=== PATIENT | male | born 1950 | race Caucasian/White ===

== ENCOUNTER 2023-08-28 15:50 | Outpatient (CLI) | payer MEDICARE, BC | END 2023-08-28 15:51 | disposition critical access hospital (66) | LOC: EMS 15:50 | DX: R41.0 Disorientation, unspecified (principal); R06.02 Shortness of breath; R00.0 Tachycardia, unspecified; R50.9 Fever, unspecified | CPT/HCPCS: A0425; A0427 ==

== ENCOUNTER 2023-08-28 16:23 | Inpatient (IN) | payer MEDICARE, BC ==
[2023-08-28] MEDS ORDERED: SODIUM CHLORIDE 0.9% 1,000 ML IV STA ×3 (16:42→19:55)
[2023-08-28 17:02] LABS: BASOPHILS % (AUTO) 0.3 %; HCT - HEMATOCRIT 38.9 % (42.0-52.0); HGB - HEMOGLOBIN 13.3 g/dL (14.0-18.0); LYMPHOCYTES # (AUTO) 0.2 10^3/uL (1.5-3.5); LYMPHOCYTES % (AUTO) 3.5 %; MEAN CORPUSCULAR HEMOGLOBIN 31.1 pg (27.0-31.0); MEAN CORPUSCULAR HGB CONC 34.2 g/dL (32.0-36.0); MEAN CORPUSCULAR VOLUME 90.9 fL (80.0-94.0); MEAN PLATELET VOLUME 9.8 fL (7.4-11.4); MONOCYTES # (AUTO) 0.3 10^3/uL (0.0-1.0); MONOCYTES % (AUTO) 4.1 %; NEUTROPHILS # (AUTO) 6.2 10^3/uL (1.5-6.6); NEUTROPHILS % (AUTO) 91.1 %; PLT - PLATELET COUNT 70 10^3/uL (130-450); RED BLOOD COUNT 4.28 10^6/uL (4.70-6.10); RED CELL DISTRIBUTION WIDTH 12.9 % (12.0-15.0); WHITE BLOOD COUNT 6.8 x10^3/uL (4.8-10.8)
--- NOTE | 2023-08-28 17:05 | ED Physician Documentation ---
History of Present Illness - Stated complaint Stated Complaint: AMS - Chief complaint Chief Complaint: Neuro - History obtained from History obtained from: Patient, Family - History of Present Illness Timing: How many days ago (2) Pain level max: 8 Pain level now: 0 - Additonal information Additional information: Patient is a 72-year-old male who presents to the emergency department after returning 1 week ago from a trip to [place]. Noted fever today. Had abdominal pain and cramping 2 days ago. Had COVID 2 months ago. Minimal cough. No nausea or vomiting. No urinary symptoms. No diarrhea. No constipation. No neck or back pain. No headache. No rhinorrhea. No sore throat. states that he seemed confused earlier today. Patient has been drinking wine and watching football today. Review of Systems Constitutional: reports: Fever, Chills, Myalgias Nose: denies: Congestion Throat: denies: Sore throat Respiratory: denies: Dyspnea, Hemoptysis, Wheezing GI: reports: Abdominal Pain (Diffuse abdominal pain 2 days ago after eating fish, no pain now). denies: Nausea, Vomiting, Diarrhea, Hematemesis, Bloody / black stool : denies: Dysuria, Frequency, Hesitancy Skin: denies: Rash Musculoskeletal: denies: Neck pain, Back pain Neurologic: denies: Headache PD PAST MEDICAL HISTORY - Past Medical History Past Medical History: Yes Cardiovascular: High cholesterol - Past Surgical History Past Surgical History: Yes Other past surgical history: hernia repair x 3 - Allergies Allergies/Adverse Reactions: Allergies Allergy/AdvReac Type Severity Reaction Status Date / Time No Known Drug Allergies Allergy Verified 08/28/23 16:39 - Living Situation Living Situation: reports: With family Living Arrangement: reports: At home - Social History Does the pt smoke?: No Does the pt drink ETOH?: Yes ETOH Use: Wine Does the pt have substance abuse?: No - Family History Family history: reports: Non contributory PD ED PE NORMAL - Vitals Vital signs reviewed: Yes - General General: Alert and oriented X 3, No acute distress - HEENT HEENT: PERRL, Ears normal, Moist mucous membranes, Pharynx benign - Neck Neck: Supple, no meningeal sign - Cardiac Cardiac: RRR, Strong equal pulses - Respiratory Respiratory: No respiratory distress, Clear bilaterally - Abdomen Abdomen: Normal bowel sounds, Soft, Non tender, Non distended - Back Back: No CVA TTP, No spinal TTP - Derm Derm: Warm and dry, No rash - Extremities Extremities: No edema, No calf tenderness / cord - Neuro Neuro: Alert and oriented X 3 - Psych Psych: Normal mood, Normal affect Results - Vitals Vitals: Vital Signs - 24 hr 08/28/23 08/28/23 08/28/23 16:33 16:34 16:57 Temperature 100.9 C H 100.9 C H Heart Rate 126 H 118 H Respiratory 30 H 22 21 Rate Blood Pressure 125/70 119/72 O2 Saturation 88 L 95 93 If not protocol 2 : Oxygen Flow, liters/minute 08/28/23 08/28/23 18:59 20:07 Temperature 37.9 C Heart Rate 111 H 107 H Respiratory 26 H 28 H Rate Blood Pressure 105/70 114/74 O2 Saturation 93 94 If not protocol : Oxygen Flow, liters/minute Oxygen O2 Source Room air - Labs Labs: Laboratory Tests 08/28/23 08/28/23 08/28/23 16:52 16:52 16:52 WBC 6.8 RBC 4.28 L Hgb 13.3 L Hct 38.9 L MCV 90.9 MCH 31.1 H MCHC 34.2 RDW 12.9 Plt Count 70 L MPV 9.8 Neut # (Auto) 6.2 Lymph # (Auto) 0.2 L Scurry # (Auto) 0.3 Eos # (Auto) 0.0 Baso # (Auto) 0.0 Absolute Nucleated RBC 0.00 Nucleated RBC % 0.0 PT 15.2 H INR 1.4 H APTT 26.6 Sodium 129 L Potassium 3.7 Chloride 95 L Carbon Dioxide 19 L Anion Gap 15.0 H BUN 21 H Creatinine 1.5 H Estimated GFR (MDRD) 46 L Glucose 126 H Lactic Acid Calcium 9.2 Total Bilirubin 3.3 H AST 83 H ALT 59 Alkaline Phosphatase 109 Total Protein 7.3 Albumin 3.8 Globulin 3.5 Albumin/Globulin Ratio 1.1 Lipase 19 Urine Color Urine Clarity Urine pH Ur Specific Wooster Urine Protein Urine Glucose (UA) Urine Ketones Urine Occult Blood Urine Nitrite Urine Bilirubin Urine Urobilinogen Ur Leukocyte Esterase Urine RBC Urine WBC Ur Squamous Epith Cells Amorphous Sediment Urine Bacteria Urine Casts Ur Microscopic Review Urine Culture Comments Nasal Adenovirus (PCR) Nasal B. parapertussis DNA (PCR) Nasal Coronavir 229E PCR Nasal Coronavir HKU1 PCR Nasal Coronavir NL63 PCR Nasal Coronavir OC43 PCR Nasal Enterovir/Rhinovir PCR Nasal Influenza B PCR Nasal Influenza A PCR Nasal Parainfluen 1 PCR Nasal Parainfluen 2 PCR Nasal Parainfluen 3 PCR Nasal Parainfluen 4 PCR Nasal RSV (PCR) Nasal B.pertussis DNA PCR Nasal C.pneumoniae (PCR) Cristhian Human Metapneumo PCR Nasal M.pneumoniae (PCR) Nasal SARS-CoV-2 (PCR) Ethyl Alcohol 37.8 08/28/23 08/28/23 08/28/23 16:54 16:55 17:30 WBC RBC Hgb Hct MCV MCH MCHC RDW Plt Count MPV Neut # (Auto) Lymph # (Auto) Scurry # (Auto) Eos # (Auto) Baso # (Auto) Absolute Nucleated RBC Nucleated RBC % PT INR APTT Sodium Potassium Chloride Carbon Dioxide Anion Gap BUN Creatinine Estimated GFR (MDRD) Glucose Lactic Acid 5.5 H* Calcium Total Bilirubin AST ALT Alkaline Phosphatase Total Protein Albumin Globulin Albumin/Globulin Ratio Lipase Urine Color YELLOW Urine Clarity HAZY Urine pH 5.0 Ur Specific Wooster >=1.030 H Urine Protein 100 H Urine Glucose (UA) NEGATIVE Urine Ketones 15 H Urine Occult Blood SMALL H Urine Nitrite POSITIVE H Urine Bilirubin SMALL H Urine Urobilinogen 1 (NORMAL) Ur Leukocyte Esterase NEGATIVE Urine RBC 6-10 H Urine WBC 0-3 Ur Squamous Epith Cells FEW Squamous Amorphous Sediment Few Urine Bacteria Rare Urine Casts 0-2 Hyaline Casts Ur Microscopic Review INDICATED Urine Culture Comments INDICATED Nasal Adenovirus (PCR) NOT DETECTED Nasal B. parapertussis DNA (PCR) NOT DETECTED Nasal Coronavir 229E PCR NOT DETECTED Nasal Coronavir HKU1 PCR NOT DETECTED Nasal Coronavir NL63 PCR NOT DETECTED Nasal Coronavir OC43 PCR NOT DETECTED Nasal Enterovir/Rhinovir PCR NOT DETECTED Nasal Influenza B PCR NOT DETECTED Nasal Influenza A PCR NOT DETECTED Nasal Parainfluen 1 PCR NOT DETECTED Nasal Parainfluen 2 PCR NOT DETECTED Nasal Parainfluen 3 PCR NOT DETECTED Nasal Parainfluen 4 PCR NOT DETECTED Nasal RSV (PCR) NOT DETECTED Nasal B.pertussis DNA PCR NOT DETECTED Nasal C.pneumoniae (PCR) NOT DETECTED Cristhian Human Metapneumo PCR NOT DETECTED Nasal M.pneumoniae (PCR) NOT DETECTED Nasal SARS-CoV-2 (PCR) NOT DETECTED Ethyl Alcohol 08/28/23 20:42 WBC RBC Hgb Hct MCV MCH MCHC RDW Plt Count MPV Neut # (Auto) Lymph # (Auto) Scurry # (Auto) Eos # (Auto) Baso # (Auto) Absolute Nucleated RBC Nucleated RBC % PT INR APTT Sodium Potassium Chloride Carbon Dioxide Anion Gap BUN Creatinine Estimated GFR (MDRD) Glucose Lactic Acid 1.8 Calcium Total Bilirubin AST ALT Alkaline Phosphatase Total Protein Albumin Globulin Albumin/Globulin Ratio Lipase Urine Color Urine Clarity Urine pH Ur Specific Wo[place] Urine Protein Urine Glucose (UA) Urine Ketones Urine Occult Blood Urine Nitrite Urine Bilirubin Urine Urobilinogen Ur Leukocyte Esterase Urine RBC Urine WBC Ur Squamous Epith Cells Amorphous Sediment Urine Bacteria Urine Casts Ur Microscopic Review Urine Culture Comments Nasal Adenovirus (PCR) Nasal B. parapertussis DNA (PCR) Nasal Coronavir 229E PCR Nasal Coronavir HKU1 PCR Nasal Coronavir NL63 PCR Nasal Coronavir OC43 PCR Nasal Enterovir/Rhinovir PCR Nasal Influenza B PCR Nasal Influenza A PCR Nasal Parainfluen 1 PCR Nasal Parainfluen 2 PCR Nasal Parainfluen 3 PCR Nasal Parainfluen 4 PCR Nasal RSV (PCR) Nasal B.pertussis DNA PCR Nasal C.pneumoniae (PCR) Cristhian Human Metapneumo PCR Nasal M.pneumoniae (PCR) Nasal SARS-CoV-2 (PCR) Ethyl Alcohol - Rads (name of study) cxr Relevant Findings:: Final report received, See rad report abd/pel CT Relevant Findings:: Final report received, See rad report RUQ US Relevant Findings:: Final report received, See rad report PD Medical Decision Making - ED course Complexity details: reviewed results, re-evaluated patient, considered differential, d/w patient ED course: 72-year-old male presents to the emergency department with fever, altered mental status at home and initially hypoxic. The hypoxia resolved on its own. Feels better after IV fluids. Initial lactate was significantly elevated at 5.5, he is a cirrhotic, so likely that the lactate was not cleared effectively. His gallbladder wall appeared potentially mildly thickened on CT, therefore a right upper quadrant ultrasound was performed. This does not appear consistent with acute cholecystitis, but may explain the abdominal pain he had 2 days ago. Not having any abdominal pain now. No tenderness in the right upper quadrant. Does have a UTI and initially was treated with vancomycin and Zosyn when cholecystitis was a consideration, however given that it is apparent urosepsis, was given Rocephin. Patient will be admitted for further care. Discussed the case with the nighttime hospitalist, Dr. Alarcon who graciously accepts. This document was made in part using voice recognition software. While efforts are made to proofread this document, sound alike and grammatical errors may occur. Departure - Departure Disposition: 66 [facility] DC/Xfer Clinical Impression: UTI (urinary tract infection) Qualifiers: Urinary tract infection type: acute cystitis Hematuria presence: without hematuria Qualified Code(s): N30.00 - Acute cystitis without hematuria Sepsis Qualifiers: Sepsis type: sepsis due to unspecified organism Sepsis acute organ dysfunction status: without acute organ dysfunction Qualified Code(s): A41.9 - Sepsis, unspecified organism Condition: Stable Forms: PCP List
[2023-08-28 17:15] LABS: PARTIAL THROMBOPLASTIN TIME 26.6 secs (24.9-33.3)
[2023-08-28 17:18] LABS: ALBUMIN 3.8 g/dL (3.2-5.5); ALBUMIN/GLOBULIN RATIO 1.1 (1.0-2.2); BILIRUBIN,TOTAL 3.3 mg/dL (0.2-1.0); CALCIUM 9.2 mg/dL (8.5-10.3); CREATININE 1.5 mg/dL (0.6-1.3); ETOH - ETHANOL 37.8 mg/dL; POTASSIUM 3.7 mmol/L (3.5-4.5); TOTAL PROTEIN 7.3 g/dL (6.4-8.9)
[2023-08-28 17:19] LABS: INR 1.4 (0.8-1.2); PT - PROTHROMBIN TIME 15.2 secs (9.9-12.6)
[2023-08-28 17:24] LABS: LACTIC ACID, VENOUS 5.5 mmol/L (0.5-2.2)
--- NOTE | 2023-08-28 17:41 | XRAY Report ---
PROCEDURE: Chest 1 View X-Ray INDICATIONS: cough, fever TECHNIQUE: One view of the chest was acquired. COMPARISON: None FINDINGS: Surgical changes and devices: None. Lungs and pleura: No pleural effusions or pneumothorax. Lungs are clear. Mediastinum: Mediastinal contours appear normal. Heart size is normal. Bones and chest wall: No suspicious bony lesions. Overlying soft tissues appear unremarkable. IMPRESSION: No acute cardiopulmonary findings Reviewed by: Michael Torres MD on 08/28/2023 4:39 PM AKDT Approved by: Michael Torres MD on 08/28/2023 4:39 PM AKDT Station ID: [id number]
[2023-08-28 17:42] LABS: GLUCOSE, URINE (UA) NEGATIVE (NEGATIVE); KETONES,URINE (UA) 15 mg/dL (NEGATIVE); LEUKOCYTE ESTERASE, URINE NEGATIVE (NEGATIVE); NITRITE,URINE POSITIVE (NEGATIVE); OCCULT BLOOD,URINE SMALL (NEGATIVE); PROTEIN,URINE 100 mg/dL (NEGATIVE); UROBILINOGEN,URINE 1 (NORMAL) E.U./dL (NORMAL)
[2023-08-28 17:44] LABS: ICTOTEST,URINE POSITIVE
[2023-08-28 17:45] LABS: BILIRUBIN,URINE SMALL (NEGATIVE); CLARITY,URINE HAZY (CLEAR)
[2023-08-28 17:57] LABS: AMORPHOUS SEDIMENT,UR Few /LPF; BACTERIA,URINE Rare /HPF (None Seen); SQUAMOUS EPITHELIAL CELL,UR FEW Squamous (<= Few); WBC,URINE 0-3 /HPF (0-3)
[2023-08-28 18:08] LABS: B. PARAPERTUSSIS- RESP PCR PAN NOT DETECTED; B. PERTUSSIS- RESP PCR PANEL NOT DETECTED; C. PNEUMONIAE- RESP PCR PANEL NOT DETECTED; CORONAVIRUS 229E-RESP PCR NOT DETECTED; CORONAVIRUS HKU1-RESP PCR NOT DETECTED; CORONAVIRUS NL63-RESP PCR NOT DETECTED; CORONAVIRUS OC43-RESP PCR NOT DETECTED; HUMAN METAPNEUMOVIRUS NOT DETECTED; INFLUENZA A- RESP PCR PANEL NOT DETECTED; INFLUENZA B - RESP PCR PANEL NOT DETECTED; PARAINFLUENZA VIRUS 1 NOT DETECTED; PARAINFLUENZA VIRUS 2 NOT DETECTED; PARAINFLUENZA VIRUS 3 NOT DETECTED; PARAINFLUENZA VIRUS 4 NOT DETECTED; RHINOVIRUS/ENTEROVIRUS NOT DETECTED; RSV- RESP PCR PANEL NOT DETECTED; SARS-CoV-2 -RESP PCR PANEL NOT DETECTED
[2023-08-28 18:09] LABS: M. PNEUMONIAE- RESP PCR PANEL NOT DETECTED
[2023-08-28] MEDS ORDERED: iohexoL-300 100 ML VIAL IVP ONE (18:11)
[2023-08-28] MEDS ORDERED: VANCOMYCIN INJ 1 GM in SODIUM CHLORIDE 0.9% 500 ML IV STA (18:12)
[2023-08-28] MEDS ORDERED: PIPERACILLIN/TAZOBACTAM 3.375 GM in SODIUM CHLORIDE 0.9% MINIBAG 100 ML IV STA (18:12)
[2023-08-28] MEDS ORDERED: VANCOMYCIN 1 GM VIAL ONE (18:45)
--- NOTE | 2023-08-28 18:49 | CT Report ---
PROCEDURE: CT abdomen and pelvis with contrast INDICATIONS: diffuse abd pain, fever, h/o cirrhosis TECHNIQUE: Helical axial CT of the abdomen and pelvis was obtained after intravenous contrast adminis tration and reformatted in multiple planes. Radiation dose reduction was achieved using automated exp osure control or adjustment of mA and/or kV according to patient size. COMPARISON: None FINDINGS: Lower thorax: The lung bases are clear. Heart size normal. No hiatal hernia. Liver: Skeletal hepatic capsule consistent with cirrhosis. Portal vein is patent. Biliary system: Cholelithiasis and gallbladder distention. No CT evidence of acute cholecystitis. Pancreas: Unremarkable without mass or inflammation evident. Spleen: Splenomegaly, 15.3 cm Adrenals: Normal morphology and density. Reproductive system: Unremarkable as visualized. Urinary system: Normal renal size and attenuation. No renal calculi, hydronephrosis, or solid mass p resent. Urinary bladder unremarkable. Gastrointestinal system: The bowel appears unremarkable with no evidence of bowel obstruction or inf lammation. The stomach appears unremarkable. Multiple diverticuli arise from the sigmoid colon witho ut evidence of diverticulitis Appendix: Appendectomy Peritoneal spaces: No mesenteric or retroperitoneal adenopathy. No free air. No free fluid. Vasculature: Atherosclerotic vascular calcification in the aorta without aneurysm. Severe stenosis o f the right common femoral artery without evidence of occlusion Abdominal wall: Abdominal wall is intact without evidence of ventral or inguinal hernias. Musculoskeletal: Normal bone mineralization. No acute fractures. Degenerative disc disease and arth ropathy IMPRESSION: Hepatic cirrhosis and splenomegaly without evidence of portal venous thrombosis or ascites Cholelithiasis without CT evidence of acute cholecystitis. Consider follow-up ultrasound Reviewed by: Michael Torres MD on 08/28/2023 5:47 PM SHANELL Approved by: Michael Torres MD on 08/28/2023 5:47 PM AKDT Station ID: [id number]
--- NOTE | 2023-08-28 22:03 | Ultrasound Report ---
PROCEDURE: Abdomen Limited INDICATIONS: RUQ pain, fever TECHNIQUE: Real-time focused scanning was performed of the abdomen, with image documentation. COMPARISONS: None. FINDINGS: Liver: Liver is normal in size and moderately heterogeneous in echotexture with a nodular marginatio n of the hepatic capsule consistent with stated clinical history of cirrhosis. Direction of portal ve in flow is appropriate. Gallbladder: The gallbladder is abnormal containing sludge but no definite discrete gallstones within the gallbladder lumen are seen. The gallbladder wall is abnormally thickened at 8 mm. A slight degre e of pericholecystic free fluid is seen but no discrete tenderness on sonographic palpation is associ ated. A hyperechoic focus partially visualized at the gallbladder neck measures approximately 0.7 x 1 .1 x 1.3 cm and could represent a partially visualized gallstone or sludge ball. Biliary ducts: Intrahepatic bile ducts are non-dilated. Extrahepatic bile duct caliber measures 6.0 mm. Normal is 6-7 mm or less in diameter, or 10 mm or less post-cholecystectomy. Pancreas: Visualized portions of the pancreas are sonographically normal. Right kidney: Normal in size and echotexture. Right kidney measures 10.7 cm long. No hydronephrosis or nephrolithiasis. No solid masses. No complex renal cystic lesions which require follow-up. Aorta: Visualized aorta is normal in caliber at less than 3 cm. IVC: Intrahepatic inferior vena cava is patent. Miscellaneous: Slight free abdominal fluid. IMPRESSION: Sludge is present within the gallbladder lumen and there is a possible sludge ball versus partially v isualized stone at the gallbladder neck that measures approximately 1.1 cm. The bile ducts are not di stended. The gallbladder wall is thickened at 8 mm. This can be seen in the setting of adjacent hepat ic cirrhosis. In this clinical circumstance it does not definitively establish presence of acute chol ecystitis. Slight ascites, heterogeneous liver parenchyma, nodular margination of the hepatic capsule, findings consistent with cirrhosis. Reviewed by: Ricco Josue MD on 08/28/2023 10:02 PM PDT Approved by: Ricco Josue MD on 08/28/2023 10:02 PM PDT Station ID: [id number]
[2023-08-28] MEDS ORDERED: cefTRIAXone 1 GM VIAL IVP STA (22:09)
--- NOTE | 2023-08-28 22:42 | HISTORY & PHYSICAL EXAMINATION ---
Chief Complaint - Chief Complaint Chief Complaint: Abdo pain History of Present Illness - Admitted From Admitted From:: ER - History Obtained From Records Reviewed: Yes History obtained from: Patient, staff, chart Exam Limitations: Virtual Exam - History of Present Illness HPI Comment/Other: H&P was conducted via video remotely, using Access Cart. Patient is in ID. Physician is in ID. No one is at bedside. 72 yo M with PMH of Liver Cirrhosis d/t ETOH, Nephrolithiasis, HLD presented to the ER with c/o 3 day h/o abdominal pain and 1 day h/o Fever, AMS. Pt returned from a 2 month trip to [place] 1 week ago. On , 3 days ago, pt had a sudden abdominal cramp/pain RUQ 7/10, radiating to his R lower back. +N/V x 2, non-bloody. +BM: normal. The next day, he had decreased appetite, abdominal pain improved, +Fever to 100. He took Ambien. Today, he felt better in the AM. After lunch, he was acting confused and walking off-balance. No dysuria/hematuria/change in urgency/frequency. Pt stopped drinking daily last year and did have tremors at home, resolved by drinking wine. He now drinks occasionally: 2 glasses/wine on weekends, social occasions. No CP/SOB/cough. In the ER, T100.9F, HR 126, SpO2 88%RA-93% 2L NC O2-94% RA, Hgb 13.3, MCH 31.1, INR 1.4, Na 129, CR 1.5, Glc 126, AST 83, LA 5.5-1.8, U/A: +WBC Nitr+, UC and BC pending. Viral resp panel neg. CXR: NAD CT Abdo: Hepatic cirrhosis, Splenomegaly, Cholelithiasis U/S Abdo: liver cirrhosis, GB sludge Pt was given IVF, Zosyn/Vanco and Rocephin in the ER. History - Past Medical History Cardiovascular: reports: High cholesterol - Past Surgical History Other past surgical history: hernia repair x 3 - Family & Social History Living arrangement: At home Living Situation: With family Meds/Allgy - Allergies Allergies/Adverse Reactions: Allergies Allergy/AdvReac Type Severity Reaction Status Date / Time No Known Drug Allergies Allergy Verified 10/21/23 16:39 Review of Systems - All Other Systems All Other Systems: reports: Reviewed and negative Exam - Vital Signs Reviewed Vital Signs: Yes Vital Signs: Vital Signs x48h Temp Pulse Resp BP Pulse Ox O2 Flow Rate 08/28/23 20:07 107 H 28 H 114/74 94 08/28/23 18:59 37.9 C 111 H 26 H 105/70 93 08/28/23 16:57 100.9 C H 118 H 21 119/72 93 2 08/28/23 16:34 100.9 C H 126 H 22 125/70 95 08/28/23 16:33 30 H 88 L - Physical Exam General Appearance: positive: No acute distress, Alert Eyes Bilateral: positive: EOMI, No scleral icterus Respiratory: positive: Other ( Access cart stethoscope not working; per ER Provider: CTA B/L) Cardiovascular: positive: Other (Access cart stethoscope not working; per ER Provider: RR, Tachy, no murmurs) Abdomen: positive: Other (per ER Provider: non-distended, NT, Soft, no CVAT) Extremities: positive: Full ROM, No pedal edema Neurologic/Psychiatric: positive: Oriented x3, CN's nml (2-12), Mood/affect nml Conclusion/Plan - Problem List (1) UTI (urinary tract infection) Conclusion/Plan: Sepsis UTI Abdominal pain AMS Fever Tachycardia Elevated Lactate -T100.9F, HR 126, SpO2 88%RA-93% 2L NC O2-94% RA, LA 5.5-1.8, U/A: +WBC Nitr+, UC and BC pending. Viral resp panel neg. -CXR: NAD -CT Abdo: Hepatic cirrhosis, Splenomegaly, Cholelithiasis -U/S Abdo: liver cirrhosis, GB sludge -Pt was given IVF, Zosyn/Vanco and Rocephin in the ER. -admit to Obs/Med Tele -continue IVF, Rocephin -F/U UC JORG[facility]O Hyponatremia Nausea/Vomiting Decreased PO intake -Na 129, CR 1.5 -IVF -clear liquid diet; advance as tolerated -anti-emetics PRN -avoid nephrotoxins -monitor labs Liver Cirrhosis Elevated INR Elevated AST -INR 1.4, AST 83 -pt still drinks ETOH, but not daily -recommend ETOH cessation -monitor on Tele Hyperglycemia -Glc 126 -check Hgba1c Anemia, macrocytic -Hgb 13.3, MCH 31.1 -check B12/Folate HLD -hold home medications: injectable meds per pt GERD -continue home medications: PPI VTE Prophylaxis: SCDs only d/t elevated coags Code Status: D/W pt; he is Full Code ~Mela Alarcon MD Hospitalist Qualifiers: Urinary tract infection type: acute cystitis Hematuria presence: without hematuria Qualified Code(s): N30.00 - Acute cystitis without hematuria - Lab Results Fish Bones: 08/28/23 16:52 08/28/23 16:52
[2023-08-28] MEDS ORDERED: SODIUM CHLORIDE FLUSH 0.9% 10 ML SYRINGE IVP PRN (22:54)
[2023-08-28] MEDS ORDERED: ONDANSETRON ODT 4 MG TABLET TL PRN (22:54)
[2023-08-28] MEDS ORDERED: ONDANSETRON 4 MG/2 ML VIAL IVP PRN (22:54)
[2023-08-29] MEDS: SODIUM CHLORIDE FLUSH 0.9% 10 ML SYRINGE IVP SCH ×3 (00:10→17:00)
[2023-08-29] MEDS: SODIUM CHLORIDE 0.9% 1,000 ML IV SCH ×3 (00:10→23:58)
[2023-08-29] MEDS: ACETAMINOPHEN 325 MG TABLET PO PRN ×3 (02:04→23:57)
[2023-08-29] MEDS ORDERED: LORazepam 2 MG/ML VIAL IVP PRN (07:29)
[2023-08-29 07:51] LABS: BASOPHILS % (AUTO) 0.2 %; HCT - HEMATOCRIT 33.7 % (42.0-52.0); HGB - HEMOGLOBIN 11.5 g/dL (14.0-18.0); LYMPHOCYTES % (AUTO) 2.6 %; MEAN CORPUSCULAR HEMOGLOBIN 31.4 pg (27.0-31.0); MEAN CORPUSCULAR HGB CONC 34.1 g/dL (32.0-36.0); MEAN CORPUSCULAR VOLUME 92.1 fL (80.0-94.0); MEAN PLATELET VOLUME 10.6 fL (7.4-11.4); MONOCYTES % (AUTO) 7.7 %; NEUTROPHILS % (AUTO) 88.3 %; PLT - PLATELET COUNT 48 10^3/uL (130-450); RED BLOOD COUNT 3.66 10^6/uL (4.70-6.10); WHITE BLOOD COUNT 9.5 x10^3/uL (4.8-10.8)
[2023-08-29 08:04] LABS: SLIDE REVIEW? Indicated
[2023-08-29 08:06] LABS: ABNORMAL LYMPHS % (MANUAL) 0 %
[2023-08-29 08:19] LABS: ALBUMIN 3.3 g/dL (3.2-5.5); BILIRUBIN,TOTAL 4.1 mg/dL (0.2-1.0); CALCIUM 8.7 mg/dL (8.5-10.3); CREATININE 1.5 mg/dL (0.6-1.3); MAGNESIUM 1.1 mg/dL (1.7-2.3); POTASSIUM 3.8 mmol/L (3.5-4.5); TOTAL PROTEIN 6.5 g/dL (6.4-8.9)
[2023-08-29 08:53] LABS: BAND NEUTROPHILS % (MANUAL) 20 %; LYMPHOCYTES # (MANUAL) 0.5 10^3/uL (1.5-3.5); LYMPHOCYTES % (MANUAL) 5 %; METAMYELOCYTES % (MANUAL) 4 %; MONOCYTES # (MANUAL) 0.3 10^3/uL (0.0-1.0); NEUTROPHILS # (MANUAL) 8.4 10^3/uL (1.5-6.6); RBC MORPHOLOGY (MULTIPLE) NORMAL APPEARANCE (NORMAL)
[2023-08-29 08:54] LABS: DIFFERENTIAL COMMENT MANUAL DIFFERENTIAL; PLATELET ESTIMATE, MANUAL DECREASED (<130,000) (NORMAL); PLATELET MORPHOLOGY NORMAL APPEARANCE (NORMAL); WBC MORPHOLOGY (MULTIPLE) NORMAL APP (NORMAL)
[2023-08-29] MEDS ORDERED: MULTIVITAMIN 10 ML, THIAMINE INJ 100 MG, FOLIC ACID INJ 1 MG in SODIUM CHLORIDE 0.9% 1,... IV SCH (09:00)
[2023-08-29] MEDS: PANTOPRAZOLE 40 MG TABLET PO SCH (09:30)
[2023-08-29 10:09] LABS: ESTIMATED AVERAGE GLUCOSE 103 mg/dL (70-100); HEMOGLOBIN A1c% 5.2 % (4.27-6.07)
[2023-08-29] MEDS ORDERED: SODIUM CHLORIDE 0.9% 1,000 ML ONE (13:43)
--- NOTE | 2023-08-29 14:46 | PHARMACY PROGRESS NOTE ---
- Best Possible Medication History Admit Date and Time: 08/29/23 0726 Processed by: Pharmacy Medication History completed: Yes Patient Interview: Completed Secondary Source(s): Pharmacy records, Insurance records (CALLED [facility] TO VERIFY MEDS AND SPOKE WITH PATIENT DIRECTLY) As the person ultimately responsible for medication therapy, providers are able to order a medication from an existing home medication list in [facility] via the "Reconcile Routine" prior to Confirmation of that medication by sales support technician. Such practice is discouraged except when the physician, in their clinical judgment, deems that a medical need exists for a medication without regard to previous use.
[2023-08-29] MEDS ORDERED: MAGNESIUM SULFATE 2 GRAM 2 GM/50 ML BAG IV ONE (18:14)
[2023-08-29] MEDS ORDERED: THIAMINE 100 MG TABLET PO ONE (18:31)
[2023-08-29] MEDS ORDERED: cefTRIAXone 1 GM in SODIUM CHLORIDE 0.9% MINIBAG 100 ML IV SCH (21:00)
--- NOTE | 2023-08-29 21:00 | PROVIDER PROGRESS NOTE ---
Subjective - Prog Note Date Prog Note Date: 08/29/23 Prog Note Time: 20:00 - Subjective Pt reports feeling: No change Subjective: Mr Zabala presented to the ER w/ 3 days of abdominal pain, 1 day of fever w/ AMS. He returned 1 week ago from a 2 month trip to [place], where he was eating foreign cuisine along with consuming alcohol greater than his reportedly reduced intake. Pt reports daily drinking stopped last year, tremors noted at home, resolved by drinking wine. He now drinks occasionally: 2 glasses/wine on weekends, social occasions. On 08/26, he had sudden abdominal cramping/pain RUQ 7/10, radiating to his R lower back, along with nausea/vomting x2, no diarrhea. On 08/27, his appetite was decreased, but abdominal pain improved. He then became febrile at 100 F. On 08/28, he felt better in the AM, but by afternoon he was acting confused w/ ataxic gait. Denies dysuria, hematuria, change in urgency/frequency. Denies CP, SOB, or cough. Objective - Vital Signs/Intake & Output Reviewed Vital Signs: Yes Vital Signs: Vital Signs x48h Temp Pulse Resp BP Pulse Ox 08/29/23 19:36 37.8 C 89 20 115/72 93 08/29/23 16:33 39.1 C H 08/29/23 15:34 38.4 C H 90 30 H 122/64 94 Intake & Output: Intake & Output 08/26/23 08/27/23 08/28/23 08/29/23 23:59 23:59 23:59 23:59 Intake Total 3600 4228.75 Output Total 1750 Balance 3600 2478.75 - Objective General Appearance: positive: No acute distress, Alert, Other (Disheveled, greasy) Eyes Bilateral: positive: Normal inspection, No scleral icterus ENT: positive: ENT inspection nml Neck: positive: Nml inspection, No JVD Respiratory: positive: Chest non-tender, No respiratory distress Cardiovascular: positive: Regular rate & rhythm, Systolic murmur Abdomen: positive: Non-tender, Nml bowel sounds Skin: positive: No rash, Warm, Dry Extremities: positive: Non-tender, Nml appearance, No pedal edema Neurologic/Psychiatric: positive: Oriented x3, Mood/affect nml, Other (Bilateral hands fine tremor) - Lab Results Fish Bones: 08/30/23 09:40 08/30/23 05:20 Other Labs: Lab Results x24hrs 08/29/23 08/29/23 08/28/23 Range/Units 07:42 07:42 20:42 WBC 9.5 (4.8-10.8) x10^3/uL RBC 3.66 L (4.70-6.10) 10^6/uL Hgb 11.5 L (14.0-18.0) g/dL Hct 33.7 L (42.0-52.0) % MCV 92.1 (80.0-94.0) fL MCH 31.4 H (27.0-31.0) pg MCHC 34.1 (32.0-36.0) g/dL RDW 13.0 (12.0-15.0) % Plt Count 48 L (130-450) 10^3/uL MPV 10.6 (7.4-11.4) fL Neut # (Auto) Not Reportable Lymph # (Auto) Not Reportable [place] # (Auto) Not Reportable Eos # (Auto) Not Reportable Baso # (Auto) Not Reportable Absolute Nucleated RBC Not Reportable Total Counted 100 Band Neuts % (Manual) 20 H (0 - 10) % Abnorm Lymph % (Manual) 0 % Metamyelocytes % 4 H ( - 0) % Nucleated RBC % Not Reportable Neutrophils # (Manual) 8.4 H (1.5-6.6) 10^3/uL Lymphocytes # (Manual) 0.5 L (1.5-3.5) 10^3/uL Monocytes # (Manual) 0.3 (0.0-1.0) 10^3/uL Eosinophils # (Manual) 0.0 (0-0.7) 10^3/uL Basophils # (Manual) 0.0 (0-0.1) 10^3/uL Differential Comment MANUAL DIFFERENTIAL Manual Slide Review Indicated WBC Morphology NORMAL MAKAYLA (NORMAL) Platelet Estimate DECREASED (<130,000) (NORMAL) Platelet Morphology NORMAL APPEARANCE (NORMAL) RBC Morph Micro Appear NORMAL APPEARANCE (NORMAL) Sodium 133 L (135-145) mmol/L Potassium 3.8 (3.5-4.5) mmol/L Chloride 102 (101-111) mmol/L Carbon Dioxide 22 (21-32) mmol/L Anion Gap 9.0 (6-13) BUN 23 H (6-20) mg/dL Creatinine 1.5 H (0.6-1.3) mg/dL Estimated GFR (MDRD) 46 L (>89) Glucose 117 H (74-104) mg/dL Estimat Average Glucose (70-100) mg/dL Hemoglobin A1c % (4.27-6.07) % Lactic Acid 1.8 (0.5-2.2) mmol/L Calcium 8.7 (8.5-10.3) mg/dL Magnesium 1.1 L (1.7-2.3) mg/dL Total Bilirubin 4.1 H (0.2-1.0) mg/dL GGT 661 H (9-64) IU/L AST 595 H (10-42) IU/L ALT 292 H (10-60) IU/L Alkaline Phosphatase 76 (42-121) IU/L Total Protein 6.5 (6.4-8.9) g/dL Albumin 3.3 (3.2-5.5) g/dL Globulin 3.2 (2.1-4.2) g/dL Albumin/Globulin Ratio 1.0 (1.0-2.2) Vitamin B12 1167 H (180-914) pg/mL Folate 19.6 (5.90 - >24.8) ng/mL 08/28/23 Range/Units 16:52 WBC (4.8-10.8) x10^3/uL RBC (4.70-6.10) 10^6/uL Hgb (14.0-18.0) g/dL Hct (42.0-52.0) % MCV (80.0-94.0) fL MCH (27.0-31.0) pg MCHC (32.0-36.0) g/dL RDW (12.0-15.0) % Plt Count (130-450) 10^3/uL MPV (7.4-11.4) fL Neut # (Auto) Lymph # (Auto) [place] # (Auto) Eos # (Auto) Baso # (Auto) Absolute Nucleated RBC Total Counted Band Neuts % (Manual) (0 - 10) % Abnorm Lymph % (Manual) % Metamyelocytes % ( - 0) % Nucleated RBC % Neutrophils # (Manual) (1.5-6.6) 10^3/uL Lymphocytes # (Manual) (1.5-3.5) 10^3/uL Monocytes # (Manual) (0.0-1.0) 10^3/uL Eosinophils # (Manual) (0-0.7) 10^3/uL Basophils # (Manual) (0-0.1) 10^3/uL Differential Comment Manual Slide Review WBC Morphology (NORMAL) Platelet Estimate (NORMAL) Platelet Morphology (NORMAL) RBC Morph Micro Appear (NORMAL) Sodium (135-145) mmol/L Potassium (3.5-4.5) mmol/L Chloride (101-111) mmol/L Carbon Dioxide (21-32) mmol/L Anion Gap (6-13) BUN (6-20) mg/dL Creatinine (0.6-1.3) mg/dL Estimated GFR (MDRD) (>89) Glucose (74-104) mg/dL Estimat Average Glucose 103 H (70-100) mg/dL Hemoglobin A1c % 5.2 (4.27-6.07) % Lactic Acid (0.5-2.2) mmol/L Calcium (8.5-10.3) mg/dL Magnesium (1.7-2.3) mg/dL Total Bilirubin (0.2-1.0) mg/dL GGT (9-64) IU/L AST (10-42) IU/L ALT (10-60) IU/L Alkaline Phosphatase (42-121) IU/L Total Protein (6.4-8.9) g/dL Albumin (3.2-5.5) g/dL Globulin (2.1-4.2) g/dL Albumin/Globulin Ratio (1.0-2.2) Vitamin B12 (180-914) pg/mL Folate (5.90 - >24.8) ng/mL - Diagnostic Imaging Diagnostic Imaging Results: positive: Final report reviewed (Results from ED workup reviewed) ABX Reporting Has patient been on IV antibiotics over the past 48 hours?: Yes Sepsis Event Note (H) - Evaluation Current Stage of Sepsis: Sepsis Possible source of Sepsis: positive: Genitourinary Confirmed Source and Organism (if known) of Sepsis: E. Coli Assessment/Plan - Problem List (1) Sepsis Impression: Pt was admitted from ED s/p AMS/UTI workup on 08/28. Pt was tachycardic, tachypnic, and febrile at 38.4 C in the ED. His lactic acid was 5.5. He was started on empiric ceftriaxone and both blood and urine cultures were obtained prior to abx, pending final result. His fever has so far been responsive to Tylenol. Plan: Continue administration of 2 g ceftriaxone IV daily for sepsis treatment. Tylenol 650 mg Q4 PO will remain for fever suppression. (2) E. Coli bacteremia Impression: ED collected PCR diagnostic which ID'd organism as E. Coli, however culture w/ sensitivity still pending. Pt started on empiric ceftriaxone at 2 g IV daily. Plan: He will need 4 days of IV antibiotics, w/ a total of 10 days coverage. Continue administration of 2 g ceftriaxone IV daily for sepsis treatment. Tylenol 650 mg Q4 PO will remain for fever suppression. (3) Elevated LFTs Impression: Pt's LFTs from labs in the ED were relatively unremarkable. When rechecking his CMP today, LFTs are significantly elevated: GGT 661, AST 595, ALT 292. Pt had borderline hypotension in ED, but these elevated values are also consistent w/ pt's alcohol use history. Plan: Will rehydrate pt with IV fluids and continue to monitor his LFTs with daily labs. (4) ETOH abuse Impression: Pt has a longstanding history of alcohol use and has recent travel where he admits to increased consumption. His AST/ALT ratio is 2:1, bilirubin elevated at 4.1, INR elevated at 1.4, and platelets are low at 43. These values are consistent w/ pt's alcohol use and recent history. Plan: Pt started on Banana bag IV to correct liver deficit. Pt was was also initiated on CIWA protocol, which includes PRN lorazepam. Start scheduled librium 10 mg BID to prevent withdrawal. (5) Hyponatremia Impression: Pt's sodium is low at 129 in ED, still low today at 133. This also correlates with his recently increased alcohol consumption. Plan: Will continue to hydrate pt via IV fluids and monitor his lab values daily. (6) Hypomagnesemia Impression: Pt's magnesium also found low at 1.1, which is common in people who consume alcohol regularly or in heavy amounts. Plan: Pt to receive IV magnesium sulfate one time to correct deficiency. Avoid nephrotoxins. (7) Acute Kidney Injury Impression: With the presentation of sepsis and subsequent dehydration, pt appears to have sustained an JORGITO. His Creatinine is 1.5, and GFR is 46 with no improvement since ED; ideally will respond with increased hydration. Plan: Continue IV fluids with NS and Banana bag; to assess daily w/ labs. (8) Heart Murmur Impression: Pt reports a known history of heart murmur but is unable to retrieve records at this time. He also has an upcoming echocardiogram scheduled with his semiconductor technician, Dr. Jamison Morales at [facility]. Plan: No indication to repeat an echo or perform further intervention as this time. 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 He notes his most recent lipid panel from several months ago was well controlled and would like to continue his prescribed medications during admission. Plan: As PCSK9i drugs are not carried on formulary here at [facility], orders will be placed to allow him to bring home medication for continued management.
[2023-08-29] MEDS: chlordiazePOXIDE 5 MG CAPSULE PO SCH (21:46)
[2023-08-30] MEDS: SODIUM CHLORIDE FLUSH 0.9% 10 ML SYRINGE IVP SCH ×3 (01:52→20:06)
[2023-08-30] MEDS: SODIUM CHLORIDE 0.9% 1,000 ML IV SCH ×2 (02:08→09:12)
[2023-08-30] MEDS: chlordiazePOXIDE 5 MG CAPSULE PO SCH ×3 (04:49→21:42)
[2023-08-30] MEDS: ACETAMINOPHEN 325 MG TABLET PO PRN ×2 (04:49→20:06)
[2023-08-30 06:03] LABS: CALCIUM 8.1 mg/dL (8.5-10.3); CREATININE 1.2 mg/dL (0.6-1.3); PHOSPHORUS 1.6 mg/dL (2.5-5.0); POTASSIUM 3.4 mmol/L (3.5-4.5)
[2023-08-30] MEDS: cefTRIAXone 2 GM in SODIUM CHLORIDE 0.9% MINIBAG 100 ML IV SCH (07:59)
[2023-08-30] MEDS ORDERED: cefTRIAXone 2 GM in SODIUM CHLORIDE 0.9% MINIBAG 100 ML IV SCH (08:00)
[2023-08-30] MEDS: PANTOPRAZOLE 40 MG TABLET PO SCH (08:35)
[2023-08-30] MEDS ORDERED: MULTIVITAMIN 10 ML, THIAMINE INJ 100 MG, FOLIC ACID INJ 1 MG in SODIUM CHLORIDE 0.9% 1,... IV SCH (09:00)
[2023-08-30] MEDS ORDERED: POTASSIUM PHOSPHATE 21 MMOL in SODIUM CHLORIDE 0.9% 250 ML IV ONE (10:00)
[2023-08-30 11:10] LABS: BILIRUBIN,DIRECT 2.38 mg/dL (0.03-0.18); BILIRUBIN,TOTAL 3.8 mg/dL (0.2-1.0); MAGNESIUM 1.6 mg/dL (1.7-2.3); TOTAL PROTEIN 6.1 g/dL (6.4-8.9)
[2023-08-30] MEDS ORDERED: OMEPRAZOLE MAGNESIUM 20 MG PO SCH (11:15)
[2023-08-30] MEDS ORDERED: ZOLPIDEM 5 MG TABLET PO PRN (11:17)
[2023-08-30 11:18] LABS: BASOPHILS % (AUTO) 0.3 %; EOSINOPHILS % (AUTO) 0.4 %; HCT - HEMATOCRIT 34.4 % (42.0-52.0); HGB - HEMOGLOBIN 11.6 g/dL (14.0-18.0); LYMPHOCYTES % (AUTO) 7.4 %; MEAN CORPUSCULAR HEMOGLOBIN 31.1 pg (27.0-31.0); MEAN CORPUSCULAR HGB CONC 33.7 g/dL (32.0-36.0); MEAN CORPUSCULAR VOLUME 92.2 fL (80.0-94.0); MEAN PLATELET VOLUME 11.6 fL (7.4-11.4); MONOCYTES % (AUTO) 12.8 %; NEUTROPHILS % (AUTO) 78.4 %; PLT - PLATELET COUNT 43 10^3/uL (130-450); RED BLOOD COUNT 3.73 10^6/uL (4.70-6.10); RED CELL DISTRIBUTION WIDTH 13.1 % (12.0-15.0); WHITE BLOOD COUNT 6.7 x10^3/uL (4.8-10.8)
[2023-08-30 11:23] LABS: ABNORMAL LYMPHS % (MANUAL) 0 %
[2023-08-30 11:36] LABS: BAND NEUTROPHILS % (MANUAL) 21 %; DIFFERENTIAL COMMENT MANUAL DIFFERENTIAL; LYMPHOCYTES # (MANUAL) 0.5 10^3/uL (1.5-3.5); LYMPHOCYTES % (MANUAL) 2 %; METAMYELOCYTES % (MANUAL) 2 %; MONOCYTES # (MANUAL) 0.6 10^3/uL (0.0-1.0); NEUTROPHILS # (MANUAL) 5.4 10^3/uL (1.5-6.6); PLATELET MORPHOLOGY NORMAL APPEARANCE (NORMAL); RBC MORPHOLOGY (MULTIPLE) NORMAL APPEARANCE (NORMAL); REACTIVE LYMPHS % (MANUAL) 6 %
--- NOTE | 2023-08-30 17:14 | PROVIDER PROGRESS NOTE ---
Subjective - Prog Note Date Prog Note Date: 08/30/23 Prog Note Time: 18:00 - Subjective Pt reports feeling: Improved Subjective: Mr Zabala presented to the ER w/ 3 days of abdominal pain, 1 day of fever w/ AMS and ataxia. He returned 1 week ago from a 2 month trip to [place], where he was eating foreign cuisine along with consuming alcohol greater than his reportedly reduced intake. Pt reports daily drinking stopped last year, tremors noted at home, resolved by drinking wine. He now drinks occasionally: 2 glasses/wine on weekends, social occasions. Pt states he is overall feeling better. He notes his appetite has not returned. He also states he did not sleep well. Denies pain or any new complaints at this time. Objective - Vital Signs/Intake & Output Reviewed Vital Signs: Yes Vital Signs: Vital Signs x48h Temp Pulse Resp BP Pulse Ox 08/30/23 16:22 37.5 C 85 19 137/78 H 93 08/30/23 13:39 18 92 Intake & Output: Intake & Output 08/27/23 08/28/23 08/29/23 08/30/23 23:59 23:59 23:59 23:59 Intake Total 3600 6371.200 3628.743 Output Total 2150 2010 Balance 3600 4221.200 1618.743 - Objective General Appearance: positive: No acute distress, Alert (Speech much more clear w/ diction today), Other (Appears disheveled, greasy) Eyes Bilateral: positive: Normal inspection, No lid inflammation, No scleral icterus ENT: positive: ENT inspection nml, No signs of dehydration Neck: positive: Nml inspection, No JVD Respiratory: positive: No respiratory distress Cardiovascular: positive: Regular rate & rhythm, Systolic murmur Abdomen: positive: Non-tender, Other (Mild distention, normal bowel sounds, no guarding or rebound) Skin: positive: Warm, Dry Extremities: positive: Non-tender, No pedal edema Neurologic/Psychiatric: positive: Oriented x3, CN's nml (2-12), Other (No tremor noted, speech and diction are clear and improved since yesterday) - Lab Results Fish Bones: 08/30/23 09:40 08/30/23 05:20 Other Labs: Lab Results x24hrs 08/30/23 08/30/23 08/30/23 Range/Units 09:40 09:40 05:20 WBC 6.7 (4.8-10.8) x10^3/uL RBC 3.73 L (4.70-6.10) 10^6/uL Hgb 11.6 L (14.0-18.0) g/dL Hct 34.4 L (42.0-52.0) % MCV 92.2 (80.0-94.0) fL MCH 31.1 H (27.0-31.0) pg MCHC 33.7 (32.0-36.0) g/dL RDW 13.1 (12.0-15.0) % Plt Count 43 L (130-450) 10^3/uL MPV 11.6 H (7.4-11.4) fL Neut # (Auto) Not Reportable Lymph # (Auto) Not Reportable [place] # (Auto) Not Reportable Eos # (Auto) Not Reportable Baso # (Auto) Not Reportable Absolute Nucleated RBC Not Reportable Total Counted 100 Band Neuts % (Manual) 21 H (0 - 10) % Reactive Lymphs % (Man) 6 % Abnorm Lymph % (Manual) 0 % Metamyelocytes % 2 H ( - 0) % Nucleated RBC % Not Reportable Neutrophils # (Manual) 5.4 (1.5-6.6) 10^3/uL Lymphocytes # (Manual) 0.5 L (1.5-3.5) 10^3/uL Monocytes # (Manual) 0.6 (0.0-1.0) 10^3/uL Eosinophils # (Manual) 0.0 (0-0.7) 10^3/uL Basophils # (Manual) 0.0 (0-0.1) 10^3/uL Differential Comment MANUAL DIFFERENTIAL Platelet Morphology NORMAL APPEARANCE (NORMAL) RBC Morph Micro Appear NORMAL APPEARANCE (NORMAL) Sodium 132 L (135-145) mmol/L Potassium 3.4 L (3.5-4.5) mmol/L Chloride 103 (101-111) mmol/L Carbon Dioxide 22 (21-32) mmol/L Anion Gap 7.0 (6-13) BUN 18 (6-20) mg/dL Creatinine 1.2 (0.6-1.3) mg/dL Estimated GFR (MDRD) 60 L (>89) Glucose 120 H (74-104) mg/dL Calcium 8.1 L (8.5-10.3) mg/dL Phosphorus 1.6 L (2.5-5.0) mg/dL Magnesium 1.6 L (1.7-2.3) mg/dL Total Bilirubin 3.8 H (0.2-1.0) mg/dL Direct Bilirubin 2.38 H (0.03-0.18) mg/dL AST 508 H (10-42) IU/L ALT 364 H (10-60) IU/L Alkaline Phosphatase 63 (42-121) IU/L Total Protein 6.1 L (6.4-8.9) g/dL Albumin 3.0 L (3.2-5.5) g/dL Globulin 3.1 (2.1-4.2) g/dL ABX Reporting Has patient been on IV antibiotics over the past 48 hours?: Yes Sepsis Event Note (H) - Evaluation Current Stage of Sepsis: Resolved Possible source of Sepsis: positive: Genitourinary Confirmed Source and Organism (if known) of Sepsis: E. Coli Assessment/Plan - Problem List (1) Bacteremia due to Escherichia coli Impression: Pt admitted from ED s/p AMS/UTI workup on 08/28. PCR diagnostic ID'd organism as E. Coli, however final culture result w/ sensitivity still pending, should be available tomorrow. Pt on empiric ceftriaxone and will tailor abx once culture final results are available. Plan: Continue administration of 2 g ceftriaxone IV daily for sepsis treatment. Tylenol 650 mg Q4 PO will remain for fever suppression. (2) Shock Liver Impression: Upon admission, LFTs significantly elevated. Pt's values today are improved: AST 508, ALT 364. With pt's infection and recently increased ETOH, this presentation is more consistent with shock liver. Plan: As pt's liver is already responding with IV fluids, will continue to rehydrate pt and to monitor LFTs with daily CMP. (3) ETOH abuse Impression: Pt has a longstanding history of alcohol use and has recent travel where he admits to increased consumption. His AST/ALT ratio is better today: AST 508, ALT 364, bilirubin decreased to 3.8, and platelets are still low at 43. These values are consistent w/ pt's alcohol use and recent history. Plan: Pt to continue Banana bag IV. Pt to continue on CIWA protocol, which includes PO lorazepam. Start scheduled librium 10 mg BID to prevent withdrawal. (4) Hyponatremia Impression: Pt's sodium again low today at 133. This correlates with recently increased alcohol consumption. Plan: Will continue to hydrate pt via IV fluids and monitor with daily CMP. (5) Hypomagnesemia Impression: Pt's magnesium normalized today at 1.6 with the administration of IV magnesium. Plan: As magnesium has normalized, will recheck prior to discharge to ensure deficiency has resolved. (6) Acute Kidney Injury Impression: With the presentation of sepsis and subsequent dehydration, pt appears to have sustained an JORGITO. Creatinine today is 1.2, and GFR is 60. Pt appears to be responding well to increased hydration via IV. Plan: Continue IV fluids with NS and Banana bag; to assess daily w/ labs. Avoid nephrotoxins. (7) Heart Murmur Impression: Pt reports a known history of heart murmur; records revealed mild aortic stenosis. Dr. Christine, with her extensive cardiology background, noted murmur sounds more severe now. He also has an upcoming echocardiogram scheduled with his manager of regulatory affairs, Dr. Jamison Morales at [facility]. Plan: No indication to repeat an echo or perform further intervention as this time, pt will manage outpatient. 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 He notes his most recent lipid panel from several months ago was well controlled and would like to continue his prescribed medications during admission. Plan: As PCSK9i drugs are not carried on formulary here at [facility], orders will be placed to allow him to bring home medication for continued management. (9) Sepsis RESOLVED Pt admitted from ED s/p AMS/UTI workup on 08/28. Pt was tachycardic, tachypnic, and febrile at 38.4 C in the ED. His lactic acid was 5.5. He was started on empiric ceftriaxone and both blood and urine cultures were obtained prior to abx, pending final result. His fever has persisted, but so far responsive to Tylenol. Pt's lactate is now 1.8, he is no longer tachycardic or tachypnic. Plan: Continue administration of 2 g ceftriaxone IV daily for sepsis treatment. Tylenol 650 mg Q4 PO will remain for fever suppression.
[2023-08-30] MEDS ORDERED: COLESEVELAM HCL 625 MG PO SCH (21:00)
[2023-08-31] MEDS: chlordiazePOXIDE 5 MG CAPSULE PO SCH ×2 (05:21→21:05)
[2023-08-31] MEDS: SODIUM CHLORIDE FLUSH 0.9% 10 ML SYRINGE IVP SCH ×3 (05:22→21:05)
[2023-08-31 05:38] LABS: BASOPHILS % (AUTO) 0.4 %; EOSINOPHILS % (AUTO) 0.4 %; HCT - HEMATOCRIT 35.6 % (42.0-52.0); HGB - HEMOGLOBIN 12.1 g/dL (14.0-18.0); LYMPHOCYTES # (AUTO) 0.7 10^3/uL (1.5-3.5); LYMPHOCYTES % (AUTO) 9.5 %; MEAN CORPUSCULAR HEMOGLOBIN 31.5 pg (27.0-31.0); MEAN CORPUSCULAR VOLUME 92.7 fL (80.0-94.0); MEAN PLATELET VOLUME 10.7 fL (7.4-11.4); MONOCYTES # (AUTO) 1.4 10^3/uL (0.0-1.0); MONOCYTES % (AUTO) 19.8 %; NEUTROPHILS % (AUTO) 69.3 %; RED BLOOD COUNT 3.84 10^6/uL (4.70-6.10); RED CELL DISTRIBUTION WIDTH 13.2 % (12.0-15.0); WHITE BLOOD COUNT 7.2 x10^3/uL (4.8-10.8)
[2023-08-31 05:41] LABS: PLT - PLATELET COUNT 56 10^3/uL (130-450)
[2023-08-31 05:51] LABS: BILIRUBIN,TOTAL 3.7 mg/dL (0.2-1.0); CALCIUM 8.3 mg/dL (8.5-10.3); CREATININE 1.1 mg/dL (0.6-1.3); MAGNESIUM 1.5 mg/dL (1.7-2.3); POTASSIUM 3.5 mmol/L (3.5-4.5); TOTAL PROTEIN 6.1 g/dL (6.4-8.9)
[2023-08-31] MEDS: ACETAMINOPHEN 325 MG TABLET PO PRN (05:51)
[2023-08-31] MEDS: cefTRIAXone 2 GM in SODIUM CHLORIDE 0.9% MINIBAG 100 ML IV SCH (07:58)
[2023-08-31] MEDS: PANTOPRAZOLE 40 MG TABLET PO SCH (08:37)
[2023-08-31] MEDS ORDERED: ALIROCUMAB 75 MG/ML SUBQ SCH (09:00)
[2023-08-31] MEDS ORDERED: FOLIC ACID 1 MG TABLET PO SCH (09:00)
[2023-08-31] MEDS ORDERED: PITAVASTATIN CALCIUM 2 MG PO SCH (09:00)
--- NOTE | 2023-08-31 09:22 | PROVIDER PROGRESS NOTE ---
Assessment/Plan - Problem List (1) Bacteremia due to Escherichia coli Assessment/Plan: Improved, Blood culture shows E. coli pansensitive Continue ceftriaxone 2 mg once a day If continue improving, may consider to discharge patient to home on oral antibiotics (2) Elevated LFTs Assessment/Plan: Improving Bilirubin 1.5, both AST ALT have improved along with the SIRS being resolved Continue monitoring liver Enzymes (3) ETOH abuse Assessment/Plan: Stable, no sign of withdrawal, Librium dose decreased to twice daily Hypomagnesia noted with magnesium level 1.5, gave 2 g of magnesium (4) JORGITO (acute kidney injury) Assessment/Plan: Continue improving, creatinine 1.1 today back to his baseline (5) Sepsis Assessment/Plan: Resolved Continue IV antibiotic Monitoring patient vitals - Current Meds Current Meds: Current Medications Generic Name Dose Route Start Last Admin Trade Name Freq PRN Reason Stop Dose Admin Acetaminophen 650 mg 08/28/23 22:54 08/31/23 05:51 Acetaminophen 325 Mg Tablet PO 650 mg Q4HR PRN Administration Pain 1 to 4, or Fever Chlordiazepoxide HCl 10 mg 08/29/23 22:00 08/31/23 05:21 Chlordiazepoxide 5 Mg Capsule PO 10 mg TID THAD Administration Folic Acid 1 mg 08/31/23 09:00 08/31/23 08:37 Folic Acid 1 Mg Tablet PO 1 mg DAILY THAD Administration Ceftriaxone Sodium 2 gm/ 100 mls @ 200 mls/hr 08/30/23 08:00 08/31/23 08:38 Sodium Chloride IV Infused Q24H THAD Infusion Pantoprazole Sodium 40 mg 08/29/23 09:00 08/31/23 08:37 Pantoprazole 40 Mg Tablet PO 40 mg DAILY THAD Administration Sodium Chloride 10 ml 08/29/23 01:00 08/31/23 05:22 Sodium Chloride Flush 0.9% 10 Ml Syringe IVP 10 ml 0100,0900,1700 THAD Administration - Lab Result Fish Bone Diagrams: 08/31/23 05:18 08/31/23 05:18 - Additional Planning My Orders: My Active Orders 08/31/23 09:30 Thiamine [Vitamin B-1] 100 mg PO DAILY 08/31/23 10:00 Multivitamin [Theragran] 1 tab PO DAILYWM Subjective - Subjective Patient Reports: Feeling Better (Patient reports good appetite, weakness much improved, is able to walk to the bathroom and come back walking in the room without feeling weakness) Objective Vital Signs: Vital Signs - 24 hr 08/30/23 08/30/23 08/30/23 13:39 16:22 20:02 Temperature 37.5 C 38.6 C H Heart Rate [ 85 88 Brachial] Respiratory 18 19 16 Rate Blood Pressure 137/78 H 138/69 H [Right Brachial artery] O2 Saturation 92 93 92 08/30/23 08/30/23 08/31/23 21:42 22:58 05:50 Temperature 37.0 C 37.1 C 38.5 C H Heart Rate [ 82 90 Brachial] Respiratory 16 20 Rate Blood Pressure 119/78 138/74 H [Right Brachial artery] O2 Saturation 93 91 L 08/31/23 06:29 Temperature 37.3 C Heart Rate [ Brachial] Respiratory Rate Blood Pressure [Right Brachial artery] O2 Saturation Oxygen O2 Source Room air I&O (Last 24 Hrs): Intake and Output Totals x24h 08/29/23 08/30/23 08/31/23 23:59 23:59 23:59 Intake Total 6371.200 5793.610 100 Output Total 2150 2485 1000 Balance 4221.200 3308.610 -900 General: Alert, Oriented x3 HEENT: Atraumatic, PERRLA, EOMI Neck: Supple Neuro: Alert, Non Focal Cardiovascular: Regular rate, Other (Systolic murmur) Respiratory: No respiratory distress Abdomen: Normal bowel sounds - Results Results: Laboratory Results WBC 7.2 x10^3/uL (4.8-10.8) 08/31/23 05:18 RBC 3.84 10^6/uL (4.70-6.10) L 08/31/23 05:18 Hgb 12.1 g/dL (14.0-18.0) L 08/31/23 05:18 Hct 35.6 % (42.0-52.0) L 08/31/23 05:18 MCV 92.7 fL (80.0-94.0) 08/31/23 05:18 MCH 31.5 pg (27.0-31.0) H 08/31/23 05:18 MCHC 34.0 g/dL (32.0-36.0) 08/31/23 05:18 RDW 13.2 % (12.0-15.0) 08/31/23 05:18 Plt Count 56 10^3/uL (130-450) L 08/31/23 05:18 MPV 10.7 fL (7.4-11.4) 08/31/23 05:18 Neut # (Auto) 5.0 10^3/uL (1.5-6.6) 08/31/23 05:18 Lymph # (Auto) 0.7 10^3/uL (1.5-3.5) L 08/31/23 05:18 [place] # (Auto) 1.4 10^3/uL (0.0-1.0) H 08/31/23 05:18 Eos # (Auto) 0.0 10^3/uL (0.0-0.7) 08/31/23 05:18 Baso # (Auto) 0.0 10^3/uL (0.0-0.1) 08/31/23 05:18 Absolute Nucleated RBC 0.00 x10^3/uL 08/31/23 05:18 Total Counted 100 08/30/23 09:40 Band Neuts % (Manual) 21 % (0-10) H 08/30/23 09:40 Reactive Lymphs % (Man) 6 % 08/30/23 09:40 Abnorm Lymph % (Manual) 0 % 08/30/23 09:40 Metamyelocytes % 2 % (-0) H 08/30/23 09:40 Nucleated RBC % 0.0 /100WBC 08/31/23 05:18 Neutrophils # (Manual) 5.4 10^3/uL (1.5-6.6) 08/30/23 09:40 Lymphocytes # (Manual) 0.5 10^3/uL (1.5-3.5) L 08/30/23 09:40 Monocytes # (Manual) 0.6 10^3/uL (0.0-1.0) 08/30/23 09:40 Eosinophils # (Manual) 0.0 10^3/uL (0-0.7) 08/30/23 09:40 Basophils # (Manual) 0.0 10^3/uL (0-0.1) 08/30/23 09:40 Differential Comment MANUAL DIFFERENTIAL 08/30/23 09:40 Manual Slide Review Indicated 08/29/23 07:42 WBC Morphology NORMAL MAKAYLA (NORMAL) 08/29/23 07:42 Platelet Estimate DECREASED (<130,000) (NORMAL) 08/29/23 07:42 Platelet Morphology NORMAL APPEARANCE (NORMAL) 08/30/23 09:40 RBC Morph Micro Appear NORMAL APPEARANCE (NORMAL) 08/30/23 09:40 PT 15.2 secs (9.9-12.6) H 08/28/23 16:52 INR 1.4 (0.8-1.2) H 08/28/23 16:52 APTT 26.6 secs (24.9-33.3) 08/28/23 16:52 Sodium 133 mmol/L (135-145) L 08/31/23 05:18 Potassium 3.5 mmol/L (3.5-4.5) 08/31/23 05:18 Chloride 103 mmol/L (101-111) 08/31/23 05:18 Carbon Dioxide 22 mmol/L (21-32) 08/31/23 05:18 Anion Gap 8.0 (6-13) 08/31/23 05:18 BUN 16 mg/dL (6-20) 08/31/23 05:18 Creatinine 1.1 mg/dL (0.6-1.3) 08/31/23 05:18 Estimated GFR (MDRD) 66 (>89) L 08/31/23 05:18 Glucose 112 mg/dL (74-104) H 08/31/23 05:18 Estimat Average Glucose 103 mg/dL (70-100) H 08/28/23 16:52 Hemoglobin A1c % 5.2 % (4.27-6.07) 08/28/23 16:52 Lactic Acid 1.8 mmol/L (0.5-2.2) 08/28/23 20:42 Calcium 8.3 mg/dL (8.5-10.3) L 08/31/23 05:18 Phosphorus 1.6 mg/dL (2.5-5.0) L 08/30/23 05:20 Magnesium 1.5 mg/dL (1.7-2.3) L 08/31/23 05:18 Total Bilirubin 3.7 mg/dL (0.2-1.0) H 08/31/23 05:18 Direct Bilirubin 2.38 mg/dL (0.03-0.18) H 08/30/23 09:40 GGT 661 IU/L (9-64) H 08/29/23 07:42 AST 260 IU/L (10-42) H 08/31/23 05:18 ALT 264 IU/L (10-60) H 08/31/23 05:18 Alkaline Phosphatase 81 IU/L (42-121) 08/31/23 05:18 Total Protein 6.1 g/dL (6.4-8.9) L 08/31/23 05:18 Albumin 3.0 g/dL (3.2-5.5) L 08/31/23 05:18 Globulin 3.1 g/dL (2.1-4.2) 08/31/23 05:18 Albumin/Globulin Ratio 1.0 (1.0-2.2) 08/31/23 05:18 Lipase 19 U/L (11-82) 08/28/23 16:52 Vitamin B12 1167 pg/mL (180-914) H 08/29/23 07:42 Folate 19.6 ng/mL (5.90 - >24.8) 08/29/23 07:42 Urine Color YELLOW 08/28/23 17:30 Urine Clarity HAZY (CLEAR) 08/28/23 17:30 Urine pH 5.0 PH (5.0-7.5) 08/28/23 17:30 Ur Specific [place] >=1.030 (1.002-1.030) H 08/28/23 17:30 Urine Protein 100 mg/dL (NEGATIVE) H 08/28/23 17:30 Urine Glucose (UA) NEGATIVE mg/dL (NEGATIVE) 08/28/23 17:30 Urine Ketones 15 mg/dL (NEGATIVE) H 08/28/23 17:30 Urine Occult Blood SMALL (NEGATIVE) H 08/28/23 17:30 Urine Nitrite POSITIVE (NEGATIVE) H 08/28/23 17:30 Urine Bilirubin SMALL (NEGATIVE) H 08/28/23 17:30 Urine Urobilinogen 1 (NORMAL) E.U./dL (NORMAL) 08/28/23 17:30 Ur Leukocyte Esterase NEGATIVE (NEGATIVE) 08/28/23 17:30 Urine RBC 6-10 /HPF (0-5) H 08/28/23 17:30 Urine WBC 0-3 /HPF (0-3) 08/28/23 17:30 Ur Squamous Epith Cells FEW Squamous (<= Few) 08/28/23 17:30 Amorphous Sediment Few /LPF 08/28/23 17:30 Urine Bacteria Rare /HPF (None Seen) 08/28/23 17:30 Urine Casts 3-5 Fine Granular /LPF0-2 Hyaline Casts /LPF 08/28/23 17:30 Urine Casts 3-5 Fine Granular /LPF0-2 Hyaline Casts /LPF 08/28/23 17:30 Ur Microscopic Review INDICATED 08/28/23 17:30 Urine Culture Comments INDICATED 08/28/23 17:30 Nasal Adenovirus (PCR) NOT DETECTED 08/28/23 16:54 Nasal B. parapertussis DNA (PCR) NOT DETECTED 08/28/23 16:54 Nasal Coronavir 229E PCR NOT DETECTED 08/28/23 16:54 Nasal Coronavir HKU1 PCR NOT DETECTED 08/28/23 16:54 Nasal Coronavir NL63 PCR NOT DETECTED 08/28/23 16:54 Nasal Coronavir OC43 PCR NOT DETECTED 08/28/23 16:54 Nasal Enterovir/Rhinovir PCR NOT DETECTED 08/28/23 16:54 Nasal Influenza B PCR NOT DETECTED 08/28/23 16:54 Nasal Influenza A PCR NOT DETECTED 08/28/23 16:54 Nasal Parainfluen 1 PCR NOT DETECTED 08/28/23 16:54 Nasal Parainfluen 2 PCR NOT DETECTED 08/28/23 16:54 Nasal Parainfluen 3 PCR NOT DETECTED 08/28/23 16:54 Nasal Parainfluen 4 PCR NOT DETECTED 08/28/23 16:54 Nasal RSV (PCR) NOT DETECTED 08/28/23 16:54 Nasal B.pertussis DNA PCR NOT DETECTED 08/28/23 16:54 Nasal C.pneumoniae (PCR) NOT DETECTED 08/28/23 16:54 Crist[place]ian Human Metapneumo PCR NOT DETECTED 08/28/23 16:54 Nasal M.pneumoniae (PCR) NOT DETECTED 08/28/23 16:54 Nasal SARS-CoV-2 (PCR) NOT DETECTED 08/28/23 16:54 Ethyl Alcohol 37.8 mg/dL 08/28/23 16:52 Sepsis Event Note (H) - Evaluation Current Stage of Sepsis: Resolved Possible source of Sepsis: positive: Genitourinary ABX Reporting Has patient been on IV antibiotics over the past 48 hours?: Yes Current Medications - Current Medications Current Medications: Active Medications Acetaminophen (Acetaminophen 325 Mg Tablet) 650 mg PO Q4HR PRN PRN Reason: Pain 1 to 4, or Fever Last Admin: 08/31/23 05:51 Dose: 650 mg Chlordiazepoxide HCl (Chlordiazepoxide 5 Mg Capsule) 10 mg PO BID [facility] Ceftriaxone Sodium 2 gm/ (Sodium Chloride) 100 mls @ 200 mls/hr IV Q24H [facility] Last Infusion: 08/31/23 08:38 Dose: Infused Lorazepam (Lorazepam 2 Mg/Ml Vial) 1 mg IVP Q30M PRN; Protocol PRN Reason: CIWA >8 Magnesium Oxide (Magnesium Oxide 400 Mg Tablet) 400 mg PO Q12H [facility] Stop: 08/31/23 22:01 Last Admin: 08/31/23 10:26 Dose: 400 mg Ondansetron HCl (Ondansetron Odt 4 Mg Tablet) 4 mg TL Q6HR PRN PRN Reason: Nausea / Vomiting Ondansetron HCl (Ondansetron 4 Mg/2 Ml Vial) 4 mg IVP Q6HR PRN PRN Reason: Nausea / Vomiting Pantoprazole Sodium (Pantoprazole 40 Mg Tablet) 40 mg PO DAILY [facility] Last Admin: 08/31/23 08:37 Dose: 40 mg Multivit/Folic Acid/Iron ( Vitamin Tablet) 1 tab PO DAILYWM [facility] Last Admin: 08/31/23 10:26 Dose: 1 tab Sodium Chloride (Sodium Chloride Flush 0.9% 10 Ml Syringe) 10 ml IVP PRN PRN PRN Reason: NEEDED PER PROVIDER ORDERS Sodium Chloride (Sodium Chloride Flush 0.9% 10 Ml Syringe) 10 ml IVP 0100,0 900,1700 [facility] Last Admin: 08/31/23 10:26 Dose: 10 ml Thiamine HCl (Thiamine 100 Mg Tablet) 100 mg PO DAILY [facility] Last Admin: 08/31/23 10:26 Dose: 100 mg Zolpidem Tartrate (Zolpidem 5 Mg Tablet) 10 mg PO 2200 PRN PRN Reason: Insomnia Alirocumab [Praluent Pen] 75 mg SUBQ UD 08/29/23 Colesevelam HCl [Welchol] 6 tab PO HS 08/29/23 Folic Acid 1 mg PO DAILY 08/29/23 Losartan [Cozaar] 50 mg PO DAILY 08/29/23 Omeprazole Magnesium 20 mg PO DAILY 08/29/23 Pitavastatin Calcium [Livalo] 0.5 tab PO DAILY 08/29/23 Zolpidem Tartrate [Ambien] 10 mg HS PRN 08/29/23
[2023-08-31] MEDS ORDERED: MULTIVITAMIN TABLET PO SCH (10:00)
[2023-08-31] MEDS: PRENATAL VITAMIN TABLET PO SCH (10:26)
[2023-08-31] MEDS: THIAMINE 100 MG TABLET PO SCH (10:26)
[2023-08-31] MEDS: MAGNESIUM OXIDE 400 MG TABLET PO SCH ×2 (10:26→21:06)
[2023-08-31] MEDS ORDERED: chlordiazePOXIDE 5 MG CAPSULE PO SCH (13:00)
[2023-09-01] MEDS: SODIUM CHLORIDE FLUSH 0.9% 10 ML SYRINGE IVP SCH ×3 (05:39→20:52)
[2023-09-01 06:01] LABS: BASOPHILS % (AUTO) 0.4 %; EOSINOPHILS % (AUTO) 1.1 %; HCT - HEMATOCRIT 35.2 % (42.0-52.0); MEAN CORPUSCULAR HEMOGLOBIN 30.7 pg (27.0-31.0); MEAN CORPUSCULAR HGB CONC 34.1 g/dL (32.0-36.0); MEAN PLATELET VOLUME 9.8 fL (7.4-11.4); MONOCYTES % (AUTO) 21.7 %; NEUTROPHILS % (AUTO) 61.2 %; PLT - PLATELET COUNT 65 10^3/uL (130-450); RED BLOOD COUNT 3.91 10^6/uL (4.70-6.10); RED CELL DISTRIBUTION WIDTH 12.7 % (12.0-15.0)
[2023-09-01 06:07] LABS: ABNORMAL LYMPHS % (MANUAL) 0 %
[2023-09-01 06:10] LABS: ALBUMIN 2.8 g/dL (3.2-5.5); ALBUMIN/GLOBULIN RATIO 0.9 (1.0-2.2); CALCIUM 8.4 mg/dL (8.5-10.3); MAGNESIUM 1.5 mg/dL (1.7-2.3); POTASSIUM 3.2 mmol/L (3.5-4.5)
[2023-09-01 06:40] LABS: BAND NEUTROPHILS % (MANUAL) 12 %; BASOPHILS # (MANUAL) 0.1 10^3/uL (0-0.1); BASOPHILS % (MANUAL) 1 %; DIFFERENTIAL COMMENT MANUAL DIFFERENTIAL; LYMPHOCYTES % (MANUAL) 14 %; MONOCYTES # (MANUAL) 0.6 10^3/uL (0.0-1.0); NEUTROPHILS # (MANUAL) 5.4 10^3/uL (1.5-6.6); PLATELET ESTIMATE, MANUAL DECREASED (<130,000) (NORMAL); RBC MORPHOLOGY (MULTIPLE) NORMAL APPEARANCE (NORMAL)
[2023-09-01] MEDS: PANTOPRAZOLE 40 MG TABLET PO SCH (08:07)
[2023-09-01] MEDS: PRENATAL VITAMIN TABLET PO SCH (08:07)
[2023-09-01] MEDS: cefTRIAXone 2 GM in SODIUM CHLORIDE 0.9% MINIBAG 100 ML IV SCH (08:07)
[2023-09-01] MEDS: chlordiazePOXIDE 5 MG CAPSULE PO SCH ×2 (08:07→20:51)
[2023-09-01] MEDS: THIAMINE 100 MG TABLET PO SCH (08:08)
[2023-09-01] MEDS ORDERED: MAGNESIUM SULFATE 2 GRAM 2 GM/50 ML BAG IV ONE (08:41)
--- NOTE | 2023-09-01 08:44 | PROVIDER PROGRESS NOTE ---
Assessment/Plan - Problem List (1) Bacteremia due to Escherichia coli Assessment/Plan: Stable Pansensitive E. coli Repeat culture on 08/29/2023 has no growth to date Continue IV ceftriaxone for total 7 days (2) Elevated LFTs Assessment/Plan: improving, however, bilirubin is still at 4 AST ALT has been improved to 134/182. ALP normalized at 98. Patient probably will have residual liver damage from the sepsis experienced (3) ETOH abuse Assessment/Plan: Taper down Librium dose No sign of alcohol withdrawal (4) JORGITO (acute kidney injury) Assessment/Plan: Resolved, creatinine 1.0 today Hyponatremia and hypokalemia noted Sodium 131, potassium 3.2, magnesium 1.5 Patient is given normal saline with potassium, also oral potassium Give IV magnesium 2 g along with oral magnesium oxide Follow-up BMP and electrolytes (5) Sepsis Assessment/Plan: Sepsis resolved Continue monitoring and organ functions (6) Acute respiratory failure with hypoxia Assessment/Plan: Overnight, patient had oxygen needs, 1 to 2 L to keep good oxygenation He also felt tired today No reports of URI symptoms Lung appears clear Follow-up on CRP, BNP, and chest x-ray - Current Meds Current Meds: Current Medications Generic Name Dose Route Start Last Admin Trade Name Freq PRN Reason Stop Dose Admin Acetaminophen 650 mg 08/28/23 22:54 08/31/23 05:51 Acetaminophen 325 Mg Tablet PO 650 mg Q4HR PRN Administration Pain 1 to 4, or Fever Chlordiazepoxide HCl 10 mg 08/31/23 21:00 09/01/23 08:07 Chlordiazepoxide 5 Mg Capsule PO 10 mg BID THAD Administration Ceftriaxone Sodium 2 gm/ 100 mls @ 200 mls/hr 08/30/23 08:00 09/01/23 08:07 Sodium Chloride IV 200 mls/hr Q24H THAD Administration Pantoprazole Sodium 40 mg 08/29/23 09:00 09/01/23 08:07 Pantoprazole 40 Mg Tablet PO 40 mg DAILY THAD Administration Multivit/Folic Acid/Iron 1 tab 08/31/23 10:30 09/01/23 08:07 Vitamin Tablet PO 1 tab DAILYWM THAD Administration Sodium Chloride 10 ml 08/29/23 01:00 09/01/23 08:08 Sodium Chloride Flush 0.9% 10 Ml Syringe IVP 10 ml 0100,0900,1700 THAD Administration Thiamine HCl 100 mg 08/31/23 09:30 09/01/23 08:08 Thiamine 100 Mg Tablet PO 100 mg DAILY THAD Administration - Lab Result Fish Bone Diagrams: 09/01/23 05:32 09/01/23 05:32 - Additional Planning My Orders: My Active Orders 08/31/23 09:30 Thiamine [Vitamin B-1] 100 mg PO DAILY 08/31/23 10:30 Vitamin [Trinatal Rx 1] 1 tab PO DAILYWM 08/31/23 21:00 chlordiazePOXIDE [Librium] 10 mg PO BID 09/01/23 08:41 MAGNESIUM SULFATE 2 GRAMS IV X1 Magnesium Sulfate 2 Gram [Magnesium Sulfate] 2 gm in 50 ml IV ONCE 09/01/23 09:00 Magnesium Oxide [Mag Ox] 400 mg PO DAILYWM NS 0.9% w/20 MEQ KCL @ 83.333 mls/hr Ns W/20 Meq KCl [Normal Saline 0.9% W/20 Meq KCl] 1,000 ml IV 83.333 mls/hr Potassium Chloride [K-Dur] 20 meq PO DAILYWM Subjective - Subjective Patient Reports: Fatigue (Patient feels tired today, no other discomfort reported), Shortness of Breath Nursing Reports: Shortness of Breath (Noted some oxygen needs) Objective Vital Signs: Vital Signs - 24 hr 08/31/23 08/31/23 08/31/23 09:00 13:00 16:36 Temperature 36.7 C 36.9 C 37.4 C Heart Rate [ 94 98 84 Brachial] Respiratory 16 16 16 Rate Blood Pressure 126/65 124/68 132/77 H [Right Brachial artery] O2 Saturation 92 96 92 08/31/23 09/01/23 09/01/23 21:00 05:34 08:16 Temperature 37.9 C 36.7 C 37.2 C Heart Rate [ 87 87 85 Brachial] Respiratory 18 18 18 Rate Blood Pressure 149/82 H 145/83 H 135/78 H [Right Brachial artery] O2 Saturation 93 92 91 L Oxygen O2 Source Room air I&O (Last 24 Hrs): Intake and Output Totals x24h 08/30/23 08/31/23 09/01/23 23:59 23:59 23:59 Intake Total 5793.610 1810 240 Output Total 2485 1680 775 Balance 3308.610 130 -535 - Results Results: Laboratory Results WBC 7.0 x10^3/uL (4.8-10.8) 09/01/23 05:32 RBC 3.91 10^6/uL (4.70-6.10) L 09/01/23 05:32 Hgb 12.0 g/dL (14.0-18.0) L 09/01/23 05:32 Hct 35.2 % (42.0-52.0) L 09/01/23 05:32 MCV 90.0 fL (80.0-94.0) 09/01/23 05:32 MCH 30.7 pg (27.0-31.0) 09/01/23 05:32 MCHC 34.1 g/dL (32.0-36.0) 09/01/23 05:32 RDW 12.7 % (12.0-15.0) 09/01/23 05:32 Plt Count 65 10^3/uL (130-450) L 09/01/23 05:32 MPV 9.8 fL (7.4-11.4) 09/01/23 05:32 Neut # (Auto) Not Reportable 09/01/23 05:32 Lymph # (Auto) Not Reportable 09/01/23 05:32 [place] # (Auto) Not Reportable 09/01/23 05:32 Eos # (Auto) Not Reportable 09/01/23 05:32 Baso # (Auto) Not Reportable 09/01/23 05:32 Absolute Nucleated RBC Not Reportable 09/01/23 05:32 Total Counted 100 09/01/23 05:32 Band Neuts % (Manual) 12 % (0-10) H 09/01/23 05:32 Reactive Lymphs % (Man) 6 % 08/30/23 09:40 Abnorm Lymph % (Manual) 0 % 09/01/23 05:32 Metamyelocytes % 2 % (-0) H 08/30/23 09:40 Nucleated RBC % Not Reportable 09/01/23 05:32 Neutrophils # (Manual) 5.4 10^3/uL (1.5-6.6) 09/01/23 05:32 Lymphocytes # (Manual) 1.0 10^3/uL (1.5-3.5) L 09/01/23 05:32 Monocytes # (Manual) 0.6 10^3/uL (0.0-1.0) 09/01/23 05:32 Eosinophils # (Manual) 0.0 10^3/uL (0-0.7) 09/01/23 05:32 Basophils # (Manual) 0.1 10^3/uL (0-0.1) 09/01/23 05:32 Differential Comment MANUAL DIFFERENTIAL 09/01/23 05:32 Manual Slide Review Indicated 08/29/23 07:42 WBC Morphology NORMAL MAKAYLA (NORMAL) 08/29/23 07:42 Platelet Estimate DECREASED (<130,000) (NORMAL) 09/01/23 05:32 Platelet Morphology NORMAL APPEARANCE (NORMAL) 08/30/23 09:40 RBC Morph Micro Appear NORMAL APPEARANCE (NORMAL) 09/01/23 05:32 PT 15.2 secs (9.9-12.6) H 08/28/23 16:52 INR 1.4 (0.8-1.2) H 08/28/23 16:52 APTT 26.6 secs (24.9-33.3) 08/28/23 16:52 Sodium 131 mmol/L (135-145) L 09/01/23 05:32 Potassium 3.2 mmol/L (3.5-4.5) L 09/01/23 05:32 Chloride 101 mmol/L (101-111) 09/01/23 05:32 Carbon Dioxide 24 mmol/L (21-32) 09/01/23 05:32 Anion Gap 6.0 (6-13) 09/01/23 05:32 BUN 16 mg/dL (6-20) 09/01/23 05:32 Creatinine 1.0 mg/dL (0.6-1.3) 09/01/23 05:32 Estimated GFR (MDRD) 74 (>89) L 09/01/23 05:32 Glucose 109 mg/dL (74-104) H 09/01/23 05:32 Estimat Average Glucose 103 mg/dL (70-100) H 08/28/23 16:52 Hemoglobin A1c % 5.2 % (4.27-6.07) 08/28/23 16:52 Lactic Acid 1.8 mmol/L (0.5-2.2) 08/28/23 20:42 Calcium 8.4 mg/dL (8.5-10.3) L 09/01/23 05:32 Phosphorus 1.6 mg/dL (2.5-5.0) L 08/30/23 05:20 Magnesium 1.5 mg/dL (1.7-2.3) L 09/01/23 05:32 Total Bilirubin 4.0 mg/dL (0.2-1.0) H 09/01/23 05:32 Direct Bilirubin 2.38 mg/dL (0.03-0.18) H 08/30/23 09:40 GGT 661 IU/L (9-64) H 08/29/23 07:42 AST 134 IU/L (10-42) H 09/01/23 05:32 ALT 182 IU/L (10-60) H 09/01/23 05:32 Alkaline Phosphatase 98 IU/L (42-121) 09/01/23 05:32 Total Protein 6.0 g/dL (6.4-8.9) L 09/01/23 05:32 Albumin 2.8 g/dL (3.2-5.5) L 09/01/23 05:32 Globulin 3.2 g/dL (2.1-4.2) 09/01/23 05:32 Albumin/Globulin Ratio 0.9 (1.0-2.2) L 09/01/23 05:32 Lipase 19 U/L (11-82) 08/28/23 16:52 Vitamin B12 1167 pg/mL (180-914) H 08/29/23 07:42 Folate 19.6 ng/mL (5.90 - >24.8) 08/29/23 07:42 Urine Color YELLOW 08/28/23 17:30 Urine Clarity HAZY (CLEAR) 08/28/23 17:30 Urine pH 5.0 PH (5.0-7.5) 08/28/23 17:30 Ur Specific [place] >=1.030 (1.002-1.030) H 08/28/23 17:30 Urine Protein 100 mg/dL (NEGATIVE) H 08/28/23 17:30 Urine Glucose (UA) NEGATIVE mg/dL (NEGATIVE) 08/28/23 17:30 Urine Ketones 15 mg/dL (NEGATIVE) H 08/28/23 17:30 Urine Occult Blood SMALL (NEGATIVE) H 08/28/23 17:30 Urine Nitrite POSITIVE (NEGATIVE) H 08/28/23 17:30 Urine Bilirubin SMALL (NEGATIVE) H 08/28/23 17:30 Urine Urobilinogen 1 (NORMAL) E.U./dL (NORMAL) 08/28/23 17:30 Ur Leukocyte Esterase NEGATIVE (NEGATIVE) 08/28/23 17:30 Urine RBC 6-10 /HPF (0-5) H 08/28/23 17:30 Urine WBC 0-3 /HPF (0-3) 08/28/23 17:30 Ur Squamous Epith Cells FEW Squamous (<= Few) 08/28/23 17:30 Amorphous Sediment Few /LPF 08/28/23 17:30 Urine Bacteria Rare /HPF (None Seen) 08/28/23 17:30 Urine Casts 3-5 Fine Granular /LPF0-2 Hyaline Casts /LPF 08/28/23 17:30 Urine Casts 3-5 Fine Granular /LPF0-2 Hyaline Casts /LPF 08/28/23 17:30 Ur Microscopic Review INDICATED 08/28/23 17:30 Urine Culture Comments INDICATED 08/28/23 17:30 Nasal Adenovirus (PCR) NOT DETECTED 08/28/23 16:54 Nasal B. parapertussis DNA (PCR) NOT DETECTED 08/28/23 16:54 Nasal Coronavir 229E PCR NOT DETECTED 08/28/23 16:54 Nasal Coronavir HKU1 PCR NOT DETECTED 08/28/23 16:54 Nasal Coronavir NL63 PCR NOT DETECTED 08/28/23 16:54 Nasal Coronavir OC43 PCR NOT DETECTED 08/28/23 16:54 Nasal Enterovir/Rhinovir PCR NOT DETECTED 08/28/23 16:54 Nasal Influenza B PCR NOT DETECTED 08/28/23 16:54 Nasal Influenza A PCR NOT DETECTED 08/28/23 16:54 Nasal Parainfluen 1 PCR NOT DETECTED 08/28/23 16:54 Nasal Parainfluen 2 PCR NOT DETECTED 08/28/23 16:54 Nasal Parainfluen 3 PCR NOT DETECTED 08/28/23 16:54 Nasal Parainfluen 4 PCR NOT DETECTED 08/28/23 16:54 Nasal RSV (PCR) NOT DETECTED 08/28/23 16:54 Nasal B.pertussis DNA PCR NOT DETECTED 08/28/23 16:54 Nasal C.pneumoniae (PCR) NOT DETECTED 08/28/23 16:54 Cristhian Human Metapneumo PCR NOT DETECTED 08/28/23 16:54 Nasal M.pneumoniae (PCR) NOT DETECTED 08/28/23 16:54 Nasal SARS-CoV-2 (PCR) NOT DETECTED 08/28/23 16:54 Ethyl Alcohol 37.8 mg/dL 08/28/23 16:52 Sepsis Event Note (H) - Evaluation Current Stage of Sepsis: Resolved Possible source of Sepsis: positive: Genitourinary ABX Reporting Has patient been on IV antibiotics over the past 48 hours?: Yes
[2023-09-01] MEDS: MAGNESIUM OXIDE 400 MG TABLET PO SCH (09:00)
[2023-09-01] MEDS ORDERED: NS W/20 MEQ KCL 1,000 ML IV SCH (09:00)
[2023-09-01] MEDS ORDERED: POTASSIUM CHLORIDE 20 MEQ TABLET PO SCH (09:00)
[2023-09-01 16:35] LABS: CALCIUM 8.5 mg/dL (8.5-10.3); CREATININE 1.3 mg/dL (0.6-1.3); MAGNESIUM 1.8 mg/dL (1.7-2.3); POTASSIUM 3.4 mmol/L (3.5-4.5)
[2023-09-01] MEDS: POTASSIUM CHLORIDE 20 MEQ TABLET PO SCH ×2 (20:50→22:58)
[2023-09-02] MEDS: SODIUM CHLORIDE FLUSH 0.9% 10 ML SYRINGE IVP SCH ×2 (00:24→08:27)
[2023-09-02 05:59] LABS: BASOPHILS % (AUTO) 0.4 %; EOSINOPHILS % (AUTO) 1.7 %; HCT - HEMATOCRIT 34.1 % (42.0-52.0); HGB - HEMOGLOBIN 11.8 g/dL (14.0-18.0); LYMPHOCYTES % (AUTO) 19.8 %; MEAN CORPUSCULAR HEMOGLOBIN 31.1 pg (27.0-31.0); MEAN CORPUSCULAR HGB CONC 34.6 g/dL (32.0-36.0); MEAN PLATELET VOLUME 10.2 fL (7.4-11.4); MONOCYTES % (AUTO) 21.6 %; NEUTROPHILS % (AUTO) 54.9 %; PLT - PLATELET COUNT 74 10^3/uL (130-450); RED BLOOD COUNT 3.79 10^6/uL (4.70-6.10); WHITE BLOOD COUNT 6.9 x10^3/uL (4.8-10.8)
[2023-09-02 06:07] LABS: ABNORMAL LYMPHS % (MANUAL) 0 %
[2023-09-02 06:17] LABS: ALBUMIN 2.7 g/dL (3.2-5.5); ALBUMIN/GLOBULIN RATIO 0.8 (1.0-2.2); BILIRUBIN,TOTAL 3.9 mg/dL (0.2-1.0); CALCIUM 8.4 mg/dL (8.5-10.3); MAGNESIUM 1.6 mg/dL (1.7-2.3); POTASSIUM 3.5 mmol/L (3.5-4.5); TOTAL PROTEIN 5.9 g/dL (6.4-8.9)
[2023-09-02 06:35] LABS: BAND NEUTROPHILS % (MANUAL) 6 %; DIFFERENTIAL COMMENT MANUAL DIFFERENTIAL; EOSINOPHILS # (MANUAL) 0.2 10^3/uL (0-0.7); LYMPHOCYTES # (MANUAL) 2.1 10^3/uL (1.5-3.5); LYMPHOCYTES % (MANUAL) 31 %; METAMYELOCYTES % (MANUAL) 1 %; MONOCYTES # (MANUAL) 1.2 10^3/uL (0.0-1.0); MYELOCYTES % (MANUAL) 1 %; NEUTROPHILS # (MANUAL) 3.2 10^3/uL (1.5-6.6); PLATELET ESTIMATE, MANUAL DECREASED (<130,000) (NORMAL); RBC MORPHOLOGY (MULTIPLE) NORMAL APPEARANCE (NORMAL)
[2023-09-02] MEDS: cefTRIAXone 2 GM in SODIUM CHLORIDE 0.9% MINIBAG 100 ML IV SCH (08:26)
[2023-09-02] MEDS: chlordiazePOXIDE 5 MG CAPSULE PO SCH (08:26)
[2023-09-02] MEDS: THIAMINE 100 MG TABLET PO SCH (08:26)
[2023-09-02] MEDS: MAGNESIUM OXIDE 400 MG TABLET PO SCH (08:27)
[2023-09-02] MEDS: PRENATAL VITAMIN TABLET PO SCH (08:27)
[2023-09-02] MEDS: POTASSIUM CHLORIDE 20 MEQ TABLET PO SCH (08:27)
[2023-09-02] MEDS: PANTOPRAZOLE 40 MG TABLET PO SCH (08:27)
--- NOTE | 2023-09-02 11:25 | XRAY Report ---
PROCEDURE: Chest 1 View X-Ray INDICATIONS: new hypoxia TECHNIQUE: One view of the chest was acquired. COMPARISON: 08/28/2023 FINDINGS: Surgical changes and devices: None. Lungs and pleura: Interval development of diffuse interstitial prominence, mild vascular congestion, and small bilateral pleural effusions. No pneumothorax or focal consolidations. Mediastinum: Mediastinal contours appear normal. Heart size is normal. Bones and chest wall: No suspicious bony lesions. Overlying soft tissues appear unremarkable. IMPRESSION: Interval development of diffuse interstitial prominence, mild vascular congestion and small bilateral pleural effusions. Findings likely represent pulmonary edema/CHF although concurrent infectious/infl ammatory process not excluded. No focal consolidations. Reviewed by: Zack Lyles MD on 09/02/2023 11:23 AM PDT Approved by: Zack Lyles MD on 09/02/2023 11:23 AM PDT Station ID: [id number]
--- NOTE | 2023-09-02 15:10 | Discharge Plan ---
Discharge Plan Problem Reviewed?: Yes Disposition: Home, Self Care Condition: Stable Prescriptions: Amox/Clav 875/125 [Augmentin 875/125 Tab] 1 tablet PO Q12H 3 Days #6 tablet Potassium Chloride [K-Dur] 20 meq PO QDBREAKFAST 7 Days #7 tab Magnesium Oxide [Mag Ox] 400 mg PO DAILYWM 14 Days #14 tab Thiamine [Vitamin B-1] 100 mg PO DAILY 30 Days #30 tab Diet: Regular (free water restriction for one week) Activity Restrictions: Activity as Tolerated Shower Restrictions: No Driving Restrictions: No Assistance Devices: Other (walk as tolerated) Weight Bearing: Full Weight Instruction Topics: Chlordiazepoxide capsules, Alcoholism Impact Health Concerns: Please avoid any alcohol beverage, your liver will not do well Please follow up with a PCP and have CMP and Magnesium checked in the next 2-4 weeks Plan of Treatment: continue with three more days antibiotic Assessment: stable, improved Additional Instructions or Follow Up instructions: free water restriction education print our is provided to you No Smoking: If you smoke, Please STOP! Call for help.
--- NOTE | 2023-09-02 15:16 | DISCHARGE SUMMARY ---
Discharge Summary Admit Date: 08/28/23 Discharge Date: 09/02/23 Discharging Provider: Daniel Peterson Code Status: Attempt Resuscitation Condition at Discharge: Stable Discharge Disposition: 01 Home, Self Care - DIAGNOSES Admission Diagnoses: Sepsis secondary from UTI JORGITO Elevated liver enzyme Discharge Diagnoses with Status of Each Condition: Bacteremia due to E. coli, resolved Sepsis resolved Elevated liver function test, improved EtOH abuse JORGITO improved - HPI History of Present Illness: 72 years old male with history of liver cirrhosis secondary to alcohol use, nephrolithiasis, HLD presented to the ED with complaints of 3 days of abdominal pain and fever altered mental status for 1 day. Patient returned from a 2-month trip to [place] 1 week ago and then 3 days ago patient had a sudden abdominal cramp and the pain over the right upper quadrant 7 out of 10 intensity radiation to his right lower back with nausea vomiting twice, nonbloody normal bowel movement. The next day he had decreased appetite, abdominal pain improved however fever was 100 F. He took Ambien and felt better. Patient looked confus ed walking off balance was brought in by family. Patient denies fever or chills denies dysuria, urgency frequency or hematuria. Patient stopped drinking daily from last year and drinks occasionally now. Patient reports he only drink 2 glasses of wine on weekends. Denies chest pain shortness breath or cough. In the ER temperature 100.9, heart rate 126, oxygen saturation 88% on room air. Labs show hemoglobin 13.3, INR 1.4 sodium 129. Creatinine 1.5. AST 83 lactic acid 5.5. UA shows WBC positive nitrate positive urine culture and blood culture sent from ED. Viral panel negative. CT abdomen shows hepatic cirrhosis, splenomegaly, cholelithiasis. Patient was given IV fluid, Zosyn and Vanco and Rocephin in the ED - HOSPITAL COURSE Hospital Course: After admission patient was given ceftriaxone. 08/28/2023 bacteriuria E. coli growth in the culture, pansensitive. Patient continue with ceftriaxone 2 g daily, last dose was given 08/27 with total 7 days IV treatment. Patient had significant high liver enzymes with AST ALT in 500, ALP elevated as well Bilirubinemia noted with total bilirubin of 4-5. During the 7 days hospital stay AST ALT gradually trending down to 100 range. Sodium is improved. After admission patient has tremor and sign of alcohol withdrawal he was started on CIWA protocol and given Librium. Patient has no overt alcohol withdrawal symptoms. Librium gradually tapering down JORGITO resolved after IV fluid given, creatinine down to 1.0 which was his baseline. hypomagnesium and hypokalemia for noted during hospital stay, was given supplement, electrolytes abnormality has improved. Patient received 7 days IV ceftriaxone. With repeat culture on 08/29/2023 no growth to date. Patient is medically stable to be discharged to home, patient is educated avoid any alcohol beverage, also give 3 days of Augmentin. At time of discharge.Also give magnesium and potassium supplements Recommend patient to follow-up with his PCP. Patient and reports that they are going to [place] for the winter. Recommend patient to find a PCP - ALLERGIES Allergies/Adverse Reactions: Allergies Allergy/AdvReac Type Severity Reaction Status Date / Time No Known Drug Allergies Allergy Verified 08/28/23 16:39 - MEDICATIONS Home Medications: Ambulatory Orders Medication Instructions Recorded Confirmed Alirocumab [Praluent Pen] 75 mg SUBQ UD 08/29/23 08/29/23 Colesevelam HCl [Welchol] 6 tab PO HS 08/29/23 08/29/23 Folic Acid 1 mg PO DAILY 08/29/23 08/29/23 Losartan [Cozaar] 50 mg PO DAILY 08/29/23 08/29/23 Omeprazole Magnesium 20 mg PO DAILY 08/29/23 08/29/23 Pitavastatin Calcium [Livalo] 0.5 tab PO DAILY 08/29/23 08/29/23 Zolpidem Tartrate [Ambien] 10 mg HS PRN 08/29/23 08/29/23 Amox/Clav 875/125 [Augmentin 1 tablet PO Q12H 3 Days #6 tablet 09/02/23 875/125 Tab] Magnesium Oxide [Mag Ox] 400 mg PO DAILYWM 14 Days #14 tab 09/02/23 Potassium Chloride [K-Dur] 20 meq PO QDBREAKFAST 7 Days #7 tab 09/02/23 Thiamine [Vitamin B-1] 100 mg PO DAILY 30 Days #30 tab 09/02/23 - PHYSICAL EXAM AT DISCHARGE General Appearance: positive: No acute distress, Other Eyes Bilateral: positive: PERRL ENT: positive: Pharynx nml Neck: positive: Nml inspection Respiratory: positive: No respiratory distress Cardiovascular: positive: Regular rate & rhythm Abdomen: positive: Non-tender Skin: positive: Other (Patient appears to be yellow) Extremities: positive: Non-tender, Full ROM Neurologic/Psychiatric: positive: Oriented x3 - LABS Result Diagrams: 09/02/23 05:41 09/02/23 05:41 - SEPSIS Current Stage of Sepsis: Resolved Possible source of Sepsis: Genitourinary
[2023-09-02 16:00] VITALS: BP 141/81; O2SAT 92
[2023-09-02] MEDS ORDERED: chlordiazePOXIDE 5 MG CAPSULE PO SCH (17:00)
== END 2023-09-02 16:00 | disposition home or self-care (01) | DRG 871 ==
LOC: ED 16:23 → MS2 22:54 → OBSVTOIN 08-29 07:26
PROVIDERS: ADMIT Internal Medicine; ATTEND Internal Medicine
DX: A41.9 Sepsis, unspecified organism (principal); A41.51 Sepsis due to Escherichia coli [E. coli]; J96.01 Acute respiratory failure with hypoxia; R09.02 Hypoxemia; K74.60 Unspecified cirrhosis of liver; K72.00 Acute and subacute hepatic failure without coma; E78.00 Pure hypercholesterolemia, unspecified; N30.00 Acute cystitis without hematuria; N17.9 Acute kidney failure, unspecified; R11.2 Nausea with vomiting, unspecified; R73.9 Hyperglycemia, unspecified; D53.9 Nutritional anemia, unspecified; E87.1 Hypo-osmolality and hyponatremia; K70.30 Alcoholic cirrhosis of liver without ascites; I95.9 Hypotension, unspecified; E83.42 Hypomagnesemia; E86.0 Dehydration; R01.1 Cardiac murmur, unspecified; E78.5 Hyperlipidemia, unspecified; R41.82 Altered mental status, unspecified; K80.20 Calculus of gallbladder without cholecystitis without obstruction; R16.1 Splenomegaly, not elsewhere classified; K21.9 Gastro-esophageal reflux disease without esophagitis; R27.0 Ataxia, unspecified; F10.10 Alcohol abuse, uncomplicated
CPT/HCPCS: 36415; 71045; 74177; 76705; 80048; 80053; 80076; 81001; 82607; 82746; 82977; 83036; 83605; 83690; 83735; 83880; 84100; 85025; 85610; 85730; 87040; 87086; 87150; 87181; 87633; 96361; 96365; 96366; 96368; 96375; 97116; 97161; 97165; 99285; A9270; G0378; G0480; J3370; J3411; Q9967; 80320; 81003